=== PATIENT | female | born 1940 | race African-American/Black ===

== ENCOUNTER 2016-12-31 13:56 | Observation (INO) | payer OTHER ==
[~2016-12-31] VITALS: Ht 162.6 cm; Wt 50.0 kg
[~2016-12-31 13:56] MED LIST: AMLO5TAB2 PO; CARV12.52 PO; GABA100C4 PO; LISI-515 PO; MECL-62 PO; METF500T PO; MOBI7.5T PO; MONT10TA4 PO; PANT40TA3 PO; TRAM50TA PO
[2016-12-31 13:57] VITALS: BP 171/75; PULSE 78; RESP 12; TEMP 98.5; O2SAT 99
--- NOTE | 2016-12-31 14:08 | PD ---
Physical Exam Time Seen by Provider: 14:04 Narrative 76yo c/o AGUILAR, chest pain, upper and lower back pain since this morning. Concerned she has pneumonia. Reports SOB. Patient seen in triage. Awaiting bed placement. VS reviewed. Data Data Last Documented VS Vital Signs Date Time Temp Pulse Resp B/P Pulse Ox O2 Delivery O2 Flow Rate FiO2 12/31/16 13:57 98.5 78 12 171/75 99 MDM Supervised Visit with [place]: Elaine Cevallos December 31, 2016 14:08
--- NOTE | 2016-12-31 14:46 | RADRPT ---
EXAM DATE/TIME: 12/31/2016 14:26 [facility] COMPARISON: CHEST PA & LAT, August 19, 2014, 16:05. INDICATIONS : Body aches and weakness for 5 days. MEDICAL HISTORY : Hypertension. Diabetes mellitus type 2. SURGICAL HISTORY : Appendectomy. Hysterectomy. ENCOUNTER: Initial ACUITY: 4 - 6 days PAIN SCORE: 5/10 LOCATION: chest FINDINGS: PA and lateral views of the chest demonstrate the lungs to be symmetrically aerated without evidence of mass, infiltrate or effusion. The cardiomediastinal contours are unremarkable. Osseous structure s are intact. CONCLUSION: Normal examination. Wilfrido Jiang MD on December 31, 2016 at 14:44 Board Certified Radiologist. This report was verified electronically.
[2016-12-31 15:00] LABS: AUTOMATED NEUTROPHIL # 3.6 TH/MM3 (1.8-7.7); BASOPHIL % 0.6 % (0.0-2.0); EOSINOPHIL # 0.1 TH/MM3 (0-0.4); EOSINOPHIL % 1.7 % (0.0-4.0); HEMATOCRIT 36.1 % (35.0-46.0); HEMO FLAGS DIFF FINAL; LYMPH % 37.5 % (9.0-44.0); LYMPHOCYTE # 2.6 TH/MM3 (1.0-4.8); MEAN CELL VOLUME 75.6 FL (80.0-100.0); MEAN CORPUSCULAR HEMOGLOBIN 23.9 PG (27.0-34.0); MEAN CORPUSCULAR HGB CONC 31.6 % (32.0-36.0); NEUT % 52.2 % (16.0-70.0); PLATELET COUNT 168 TH/MM3 (150-450); RED BLOOD COUNT 4.78 MIL/MM3 (4.00-5.30); RED CELL DISTRIBUTION WIDTH 14.2 % (11.6-17.2); WHITE BLOOD COUNT 6.9 TH/MM3 (4.0-11.0)
[2016-12-31 15:23] LABS: ANION GAP 8 MEQ/L (5-15); BICARBONATE 26.4 MEQ/L (21.0-32.0); BLOOD UREA NITROGEN 16 MG/DL (7-18); CHLORIDE 108 MEQ/L (98-107); GLOMERULAR FILTRATION RATE 84 ML/MIN (>89); POTASSIUM 3.9 MEQ/L (3.5-5.1); SODIUM (NA) 142 MEQ/L (136-145)
[2016-12-31 15:26] LABS: CREATINE KINASE 135 U/L (26-192)
[2016-12-31 15:38] LABS: CKMB 0.9 NG/ML (0.5-3.6)
[2016-12-31] MEDS ORDERED: ATOR20TA15 PO (16:10)
[2016-12-31 16:14] VITALS: BP 163/71; PULSE 81; RESP 16; TEMP 98.1; O2SAT 100
--- NOTE | 2016-12-31 16:22 | PD ---
HPI Chief Complaint: Cardiac Complaint Time Seen by Provider: 15:58 Travel History International Travel<30 days: No Contact w/Intl Traveler<30days: No Traveled to known affect area: No History of Present Illness HPI The patient was seen and examined in the presence of the nurse. This patient complains of having some chest pain in her left low chest. Feels like a pressure and heaviness. Started yesterday. Currently resolved. It has been somewhat intermittent. Not exertional. Severity is moderate. No alleviating factors. Duration 24 hours. She also complains of frontal headache. No thunderclap onset. No Head injury or fever. PFSH Past Medical History Hx Anticoagulant Therapy: No Arthritis: Yes Autoimmune Disease: No Blood Disorders: No Heart Rhythm Problems: No Cancer: No Cardiac Catheterization: No Cardiovascular Problems: Yes High Cholesterol: Yes Chemotherapy: No Chest Pain: Yes Congestive Heart Failure: No Cerebrovascular Accident: No Diabetes: Yes Patient Takes Glucophage: Yes Diminished Hearing: No Gastrointestinal Disorders: No Glaucoma: Yes Genitourinary: No Hypertension: Yes Musculoskeletal: Yes (L4-5 STENOSIS) Neurologic: No Psychiatric: No Respiratory: Yes Tetanus Vaccination: > 5 Years Influenza Vaccination: Yes Menopausal: Yes Ovarian Cysts: Yes Past Surgical History Abdominal Surgery: No Appendectomy: Yes Cardiac Surgery: No Coronary Artery Bypass Graft: No Ear Surgery: No Endocrine Surgery: No Eye Surgery: No Genitourinary Surgery: No Gynecologic Surgery: Yes Hysterectomy: Yes Oral Surgery: No Pacemaker: No Thoracic Surgery: No Family History Family Myocardial Infarction: Yes Social History Alcohol Use: No Tobacco Use: No Substance Use: No Allergies-Medications (Allergen,Severity, Reaction): Coded Allergies: Niacin (Verified Allergy, Intermediate, rash, 12/31/16) Acetaminophen (Verified Allergy, Unknown, rash, 12/31/16) Carisoprodol (Verified Allergy, Unknown, rash, 12/31/16) Celestone (Verified Allergy, Unknown, MUSCLE SPASMS, 12/31/16) Iodine (Verified Allergy, Unknown, HIVES, 12/31/16) Lipitor (Verified Allergy, Unknown, MUSCLE SPASMS, 12/31/16) Lortab (Verified Allergy, Unknown, rash, 12/31/16) Lovastatin (Verified Allergy, Unknown, rash, 12/31/16) Soma (Verified Allergy, Unknown, PSYCH BEHAVIORAL, 12/31/16) Hydrocodone (Verified Adverse Reaction, Severe, BEHAVIORAL PSYCH, 12/31/16) Gabapentin (Verified Adverse Reaction, Unknown, DIZZINESS, 12/31/16) Relafen (Verified Adverse Reaction, Unknown, PSYCH BEHAVIORAL, 12/31/16) Uncoded Allergies: STATINS (Allergy, Mild, 08/10/06) NIASPAN (Adverse Reaction, Intermediate, 11/28/09) Reported Meds & Prescriptions Reported Meds & Active Scripts Active Reported Atorvastatin (Atorvastatin Calcium) 20 Mg Tab 20 Mg PO HS Montelukast (Montelukast Sodium) 10 Mg Tab 10 Mg PO HS Tramadol (Tramadol HCl) 50 Mg Tab 50 Mg PO Q12HR PRN Pantoprazole (Pantoprazole Sodium) 40 Mg Tab 40 Mg PO DAILY Metformin (Metformin HCl) 500 Mg Tab 500 Mg PO DAILY With a meal Mobic (Meloxicam) 7.5 Mg Tab 7.5 Mg PO DAILY Meclizine (Meclizine HCl) 25 Mg Tab 25 Mg PO DIRECTED PRN Lisinopril 20 Mg Tab 20 Mg PO DAILY Carvedilol 12.5 Mg Tab 12.5 Mg PO BID Amlodipine (Amlodipine Besylate) 5 Mg Tab 5 Mg PO DAILY Review of Systems General / Constitutional: No: Fever Eyes: No: Visual changes HENT: Positive: Headaches Cardiovascular: Positive: Chest Pain or Discomfort Respiratory: No: Shortness of Breath Gastrointestinal: No: Abdominal Pain Genitourinary: No: Dysuria Musculoskeletal: No: Pain Skin: No Rash Neurologic: Positive: Headache, No: Weakness Psychiatric: No: Depression Endocrine: No: Polydipsia Hematologic/Lymphatic: No: Easy Bruising Physical Exam Narrative GENERAL: Thin elderly well-developed patient in no apparent distress. SKIN: Focused skin assessment reveals no rash and nodules. Skin is Warm and dry. HEAD: Atraumatic. Normocephalic. EYES: Pupils equal and round. No scleral icterus. No injection or drainage. ENT: No nasal bleeding or discharge. Mucous membranes pink and moist. NECK: Trachea midline. No JVD. CARDIOVASCULAR: Regular rate and rhythm. No murmur appreciated. RESPIRATORY: No accessory muscle use. Clear to auscultation. Breath sounds equal bilaterally. GASTROINTESTINAL: Abdomen soft, non-tender, nondistended. Hepatic and splenic margins not palpable. MUSCULOSKELETAL: No obvious deformities. No clubbing. No cyanosis. No edema. No chest wall tenderness NEUROLOGICAL: Awake and alert. No obvious cranial nerve deficits. Motor grossly within normal limits. Normal speech. PSYCHIATRIC: Appropriate mood and affect; insight and judgment normal. Data Data Last Documented VS Vital Signs Date Time Temp Pulse Resp B/P Pulse Ox O2 Delivery O2 Flow Rate FiO2 12/31/16 16:14 98.1 81 16 163/71 100 Room Air Orders Electrocardiogram (12/31/16 14:06) Complete Blood Count With Diff (12/31/16 14:06) Basic Metabolic Panel (Bmp) (12/31/16 14:06) Ckmb (Isoenzyme) Profile (12/31/16 14:06) Troponin I (12/31/16 14:06) Chest, Pa & Lat (12/31/16 14:06) CKMB (12/31/16 14:09) CKMB% (12/31/16 14:09) Iv Access Insert/Monitor (12/31/16 16:06) Ct Brain W/O Iv Contrast(Rout) (12/31/16 ) Labs Laboratory Tests Test 12/31/16 14:09 White Blood Count 6.9 TH/MM3 Red Blood Count 4.78 MIL/MM3 Hemoglobin 11.4 GM/DL Hematocrit 36.1 % Mean Corpuscular Volume 75.6 FL Mean Corpuscular Hemoglobin 23.9 PG Mean Corpuscular Hemoglobin 31.6 % Concent Red Cell Distribution Width 14.2 % Platelet Count 168 TH/MM3 Mean Platelet Volume 9.0 FL Neutrophils (%) (Auto) 52.2 % Lymphocytes (%) (Auto) 37.5 % Monocytes (%) (Auto) 8.0 % Eosinophils (%) (Auto) 1.7 % Basophils (%) (Auto) 0.6 % Neutrophils # (Auto) 3.6 TH/MM3 Lymphocytes # (Auto) 2.6 TH/MM3 Monocytes # (Auto) 0.6 TH/MM3 Eosinophils # (Auto) 0.1 TH/MM3 Basophils # (Auto) 0.0 TH/MM3 CBC Comment DIFF FINAL Differential Comment Sodium Level 142 MEQ/L Potassium Level 3.9 MEQ/L Chloride Level 108 MEQ/L Carbon Dioxide Level 26.4 MEQ/L Anion Gap 8 MEQ/L Blood Urea Nitrogen 16 MG/DL Creatinine 0.80 MG/DL Estimat Glomerular Filtration 84 ML/MIN Rate Random Glucose 132 MG/DL Calcium Level 9.4 MG/DL Total Creatine Kinase 135 U/L Creatine Kinase MB 0.9 NG/ML Troponin I LESS THAN 0.02 NG/ML MDM Medical Decision Making Medical Screen Exam Complete: Yes Emergency Medical Condition: Yes Medical Record Reviewed: Yes Differential Diagnosis Differential diagnosis includes VA, angina, pericarditis, pleurisy, GERD, anxiety. Narrative Course I have reviewed the patient's electronic medical record. Patient had a negative exercise treadmill test approximately one year ago IV placed I reviewed the EKG which shows sinus rhythm and no acute ST elevation I reviewed the chest x-ray is negative Extended cardiac monitoring shows sinus rhythm without ectopy CBC is normal Metabolic profile is normal CK is normal Troponin is normal Coagulation studies are normal Brain CT is normal Patient's headache has resolved. I don't feel it requires further workup at this time. Given her age and chest symptoms I'm going to make her 23 hour observation in the chest pain center in order to rule out cardiac cause of her symptoms. She is agreeable. Initial cardiac workup is negative. Symptoms are atypical. Diagnosis Primary Impression: Chest pain Qualified Code: R07.2 - Precordial pain Admitting Information Admitting Physician Requests: Observation Jong Pak MD December 31, 2016 16:22
--- NOTE | 2016-12-31 16:57 | RADRPT ---
EXAM DATE/TIME: 12/31/2016 16:37 [facility] COMPARISON: No previous studies available for comparison. INDICATIONS : Cephalgia RADIATION DOSE: 38.93 CTDIvol (mGy) MEDICAL HISTORY : Hypertension. Cardiovascular disease Diabetes SURGICAL HISTORY : None. ENCOUNTER: Initial ACUITY: 1 day PAIN SCALE: 3/10 LOCATION: Cranial TECHNIQUE: Multiple contiguous axial images were obtained of the head. Using automated exposure control and adjustment of the mA and/or kV according to patient size, radiation dose was kept as low as reasonably achievable to obtain optimal diagnostic quality images. FINDINGS: Noncontrast head CT demonstrates the patient has a very narrowed foramen magnum. There may be some calcification associated with the transverse ligament. The C1-2 articulation is not wel l seen. It is chronic and unchanged from June 2015. The rest of the intracranial exam is normal. There is no evidence of any hemorrhage or edema. There is no mass or mass effect. No subarachnoid or subdural hematoma is identified. Sinuses are clear. CONCLUSION: Very narrowed foramen magnum. Intracranial exam is normal. Wilfrido Jiang MD on December 31, 2016 at 16:52 Board Certified Radiologist. This report was verified electronically.
[2016-12-31] MEDS ORDERED: SODIUM CHLORIDE 0.9% FLUSH 10 ML FLUSH IV FLUSH PRN (18:15)
[2016-12-31] MEDS ORDERED: ONDANSETRON HCL 4 MG/2 ML VIAL IV PRN (18:15)
[2016-12-31 18:27] VITALS: BP 162/71; PULSE 67; RESP 16; TEMP 97.8; O2SAT 98
[2016-12-31 19:33] LABS: CREATINE KINASE 122 U/L (26-192)
[2016-12-31 19:46] LABS: CKMB 0.9 NG/ML (0.5-3.6)
[2016-12-31 20:30] VITALS: BP 158/70; PULSE 70; RESP 14; O2SAT 99
[2016-12-31 21:29] VITALS: BP 154/70; PULSE 63; RESP 19; TEMP 98.1; O2SAT 99
[2016-12-31] MEDS: SODIUM CHLORIDE 0.9% FLUSH 10 ML FLUSH IV FLUSH SCH (21:33)
[2016-12-31] MEDS: CARVEDILOL 12.5 MG TAB PO SCH (21:34)
[2016-12-31 21:55] LABS: CREATINE KINASE 139 U/L (26-192)
[2016-12-31 22:07] LABS: CKMB 0.7 NG/ML (0.5-3.6)
[2016-12-31 23:44] VITALS: BP 155/72; PULSE 60; RESP 18; TEMP 98
[2017-01-01 00:51] VITALS: PULSE 61
[2017-01-01 03:29] VITALS: BP 128/60; PULSE 63; RESP 18; TEMP 98.1; O2SAT 98
[2017-01-01 07:02] VITALS: BP 126/94; PULSE 66; RESP 20; TEMP 97.7; O2SAT 99
[2017-01-01] MEDS ORDERED: ACETAMINOPHEN 500 MG CPLT PO PRN (07:30)
[2017-01-01] MEDS ORDERED: NITROGLYCERIN 0.4 MG SL 25 TABS/BTL SL PRN (07:30)
[2017-01-01] MEDS: CARVEDILOL 12.5 MG TAB PO SCH (08:18)
--- NOTE | 2017-01-01 08:24 | HHI.HP ---
[facility] Primary Care Physician Demetra Camacho MD Chief Complaint Chest pain History of Present Illness 76-year-old female with pertinent medical history of diabetes, hypertension, hyperlipidemia, and cardiomegaly presents to the emergency room for further evaluation of chest pain and headache. Onset yesterday morning upon awakening. Location substernal chest. Characterized as "a lot of gas and I felt full." Chest discomfort described as pressure. No radiation of pain. Associated symptoms included diaphoresis however she believes this may have been because she was "panicked" over chest discomfort and headache. Denied nausea, vomiting , or shortness of breath. Chest pressure was not made better or worse with taking deep breath, movement, or exertion. In fact she walked her neighborhood to try to get relief. Duration lasted all morning, at that time she called her daughter to bring her to the emergency room. Endorses she took a laxative to determine if laxative would help with her "full feeling." Laxative did not relieve her symptoms. No known precipitating or relieving factors. Headache location frontal region. No blurred vision, dizziness, or nausea. Headache has since subsided. Review of Systems General: No fatigue,weakness, fever, chills, recent travel, recent illness, or change in appetite. Has been in her general state of health. HEENT: AGUILAR has improved. Denied any vision changes during headache episode or dizziness. No nasal congestion or drainage, no dysphasia. CV: As stated above. No current chest pain or pressure. No CP or pressure. RESP: No SOB, cough, wheeze, or recent URI. GI: No nausea, vomiting, bowel changes, pain or distention. Denies blood in the stool or melena. Endorses constipation, uses laxative at least twice weekly. Last bowel movement yesterday and she is no longer feeling constipated. No unintentional weight gain or weight loss : No dysuria, urgency, or frequency EXT: No lower leg edema, no paraesthesias MS: No discomfort or change in ROM. Chronic bilateral knee pain stable, walks with cane. NEURO: No change in memory, dizziness, difficulty with balance, LOC, motor/ sensory deficits PSYCH: No anxiety or depression SKIN: No rashes, no concerning lesions Past Family Social History Allergies: Coded Allergies: Niacin (Verified Allergy, Intermediate, rash, 12/31/16) Acetaminophen (Verified Allergy, Unknown, rash, 12/31/16) Carisoprodol (Verified Allergy, Unknown, rash, 12/31/16) Celestone (Verified Allergy, Unknown, MUSCLE SPASMS, 12/31/16) Iodine (Verified Allergy, Unknown, HIVES, 12/31/16) Lipitor (Verified Allergy, Unknown, MUSCLE SPASMS, 12/31/16) Lortab (Verified Allergy, Unknown, rash, 12/31/16) Lovastatin (Verified Allergy, Unknown, rash, 12/31/16) Soma (Verified Allergy, Unknown, PSYCH BEHAVIORAL, 12/31/16) Hydrocodone (Verified Adverse Reaction, Severe, BEHAVIORAL PSYCH, 12/31/16) Gabapentin (Verified Adverse Reaction, Unknown, DIZZINESS, 12/31/16) Relafen (Verified Adverse Reaction, Unknown, PSYCH BEHAVIORAL, 12/31/16) Uncoded Allergies: STATINS (Allergy, Mild, 08/10/06) NIASPAN (Adverse Reaction, Intermediate, 11/28/09) Past Medical History Diabetes, hyperlipidemia, hypertension, glaucoma, cardiomegaly, L4-L5 stenosis, lupus, osteoarthritis Past Surgical History Appendectomy, hysterectomy, 2 back surgeries Reported Medications Active Reported Atorvastatin (Atorvastatin Calcium) 20 Mg Tab 20 Mg PO HS Montelukast (Montelukast Sodium) 10 Mg Tab 10 Mg PO HS Tramadol (Tramadol HCl) 50 Mg Tab 50 Mg PO Q12HR PRN Pantoprazole (Pantoprazole Sodium) 40 Mg Tab 40 Mg PO DAILY Metformin (Metformin HCl) 500 Mg Tab 500 Mg PO DAILY With a meal Mobic (Meloxicam) 7.5 Mg Tab 7.5 Mg PO DAILY Meclizine (Meclizine HCl) 25 Mg Tab 25 Mg PO DIRECTED PRN Lisinopril 20 Mg Tab 20 Mg PO DAILY Carvedilol 12.5 Mg Tab 12.5 Mg PO BID Amlodipine (Amlodipine Besylate) 5 Mg Tab 5 Mg PO DAILY Aspirin 81 mg PO QD Glipizide 10mg QD Diltiazem 240mg QD Hydroxychloroquine sulfate 200mg one tablet daily Active Ordered Medications Current Medications 0 Medications (Trade) Dose Ordered Sig/Katty Route Start Time Stop Time Status Last Admin (Zofran Inj) 4 mg Q6H PRN IV 12/31/16 18:15 (Aspirin) 325 mg DAILY PO 01/01/17 09:00 (Coreg) 12.5 mg Q12HR PO 12/31/16 21:00 12/31/16 21:34 (Prinivil) 20 mg DAILY PO 01/01/17 09:00 (Protonix) 40 mg DAILY PO 01/01/17 09:00 (Tylenol) 500 mg Q4H PRN PO 01/01/17 07:30 UNV (Nitrostat Sl) 0.4 mg Q5M PRN SL 01/01/17 07:30 Family History Noncontributory for early onset cardiovascular disease Social History Known diabetes, hypertension, and hyperlipidemia. Lifelong nonsmoker. Denies any alcohol or illegal drug use. Ambulates with a cane. Lives independently, she is a . Past cardiac testing No recent cardiac testing. Patient follows with Dr. Suárez, most recent appointment earlier this year. Never had cardiac catheterization. Per [facility] records most recent stress testing as follows: 10/19/15 ETT walked 3:31 minutes, normal exam, with no evidence of ischemia 07/04/13 nuclear ETT negative for ischemia Physical Exam Vital Signs Vital Signs Date Time Temp Pulse Resp B/P Pulse Ox O2 Delivery O2 Flow Rate FiO2 01/01/17 07:02 97.7 66 20 126/94 99 01/01/17 03:29 98.1 63 18 128/60 98 01/01/17 00:51 61 12/31/16 23:44 98.0 60 18 155/72 12/31/16 22:06 21 12/31/16 21:29 98.1 63 19 154/70 99 12/31/16 20:30 70 14 158/70 99 Room Air 12/31/16 18:27 97.8 67 16 162/71 98 Room Air 12/31/16 16:14 98.1 81 16 163/71 100 Room Air 12/31/16 16:02 68 17 98 Room Air 12/31/16 13:57 98.5 78 12 171/75 99 Physical Exam GENERAL: Alert WN, WD, NAD, pleasant, elderly female HEAD: NC, AT EYES: Sclera clear, conjunctiva without injection, pupils equal and round ENT: Mucous membranes pink and moist NECK: Supple, no masses, trachea midline CV: RRR, without murmur, rub, gallop, no JVD, S1-S2 no S3-S4. No carotid bruits. RESP: Clear lungs throughout bilateral, no crackles, wheeze, rhonchi, symmetrical chest rise, nonlabored, able to speak in full sentences ABD: Soft, NT, ND, no masses, positive bowel tones BACK: No CVAT EXT: Pulses +24, no dependent edema MS: Normal tone 4 extremities, nontender, no obvious deformities, full range of motion NEURO: CN II through CN XII grossly intact, motor strength 5/5, gait WNL PSYCH: A+O 3, pleasant affect, appropriate speech, appropriate mood and affect , insight and judgment SKIN: Normal turgor, normal texture, no lesions, no rashes Laboratory Laboratory Tests Test 12/31/16 12/31/16 12/31/16 14:09 18:00 21:05 White Blood Count 6.9 Red Blood Count 4.78 Hemoglobin 11.4 Hematocrit 36.1 Mean Corpuscular Volume 75.6 Mean Corpuscular Hemoglobin 23.9 Mean Corpuscular Hemoglobin 31.6 Concent Red Cell Distribution Width 14.2 Platelet Count 168 Mean Platelet Volume 9.0 Neutrophils (%) (Auto) 52.2 Lymphocytes (%) (Auto) 37.5 Monocytes (%) (Auto) 8.0 Eosinophils (%) (Auto) 1.7 Basophils (%) (Auto) 0.6 Neutrophils # (Auto) 3.6 Lymphocytes # (Auto) 2.6 Monocytes # (Auto) 0.6 Eosinophils # (Auto) 0.1 Basophils # (Auto) 0.0 CBC Comment DIFF FINAL Differential Comment Sodium Level 142 Potassium Level 3.9 Chloride Level 108 Carbon Dioxide Level 26.4 Anion Gap 8 Blood Urea Nitrogen 16 Creatinine 0.80 Estimat Glomerular Filtration 84 Rate Random Glucose 132 Calcium Level 9.4 Total Creatine Kinase 135 122 139 Creatine Kinase MB 0.9 0.9 0.7 Troponin I LESS THAN 0.02 LESS THAN 0.02 LESS THAN 0.02 Result Diagram: 12/31/16 1409 12/31/16 1409 Imaging Last Impressions Chest X-Ray 12/31/16 1406 Signed Impressions: Service Date/Time: December 14:26 - CONCLUSION: Normal examination. Wilfrido Jiang MD Head CT 12/31/16 0000 Signed Impressions: Service Date/Time: December 16:37 - CONCLUSION: Very narrowed foramen magnum. Intracranial exam is normal. Wilfrido Jiang MD Course EKGs Normal sinus rhythm, normal axis, no ST or T-segment changes Assessment and Plan Assessment and Plan #1 Chest painminutes chest pain center. Ruled out with 3 sets of cardiac enzymes, EKGs, monitor overnight. Seen and evaluated by Dr. Monse Ibarra. Spoke with patient's cloud solutions architect, Dr. Suárez, to notify of patients arrival to chest pain center. Dr. Suárez agrees for chest pain center physician to make decisions regarding next step in plan of care. Chemical stress test this a.m., Naturally, if stress test unremarkable discharge later this afternoon. Patient agreeable to plan of care. #2 Hypertensioncontinue lisinopril, amlodipine, carvedilol. Encouraged patient to take BP log as she was hypertensive initially in the ER. Take BP log to next PCP appointment. #3 Diabetescontinue metformin and glipizide #4 Hyperlipidemiacontinue atorvastatin #5 GERD-continue Protonix #6 Constipation-educated on meat packer affects of regular laxative usage and risk of physical dependence. Encouraged diet with plenty of fruits, vegetables , whole grains, and water intake paired with daily activity. Clarita Vo January 01, 2017 08:24
[2017-01-01] MEDS: SODIUM CHLORIDE 0.9% FLUSH 10 ML FLUSH IV FLUSH SCH (08:46)
[2017-01-01 09:00] VITALS: PULSE 63
[2017-01-01] MEDS ORDERED: ASPIRIN 325 MG TAB PO SCH (09:00)
[2017-01-01] MEDS ORDERED: LISINOPRIL 20 MG TAB PO SCH ×2 (09:00→13:00)
[2017-01-01] MEDS ORDERED: PANTOPRAZOLE SOD 40 MG DELAYED RELEASE TAB PO SCH ×2 (09:00→13:00)
[2017-01-01] MEDS ORDERED: REGADENOSON INJ 0.4 MG/5 ML SYR ONE (10:33)
[2017-01-01 12:06] VITALS: BP 155/69; PULSE 68; RESP 20; TEMP 98.5; O2SAT 95
--- NOTE | 2017-01-01 12:08 | RADRPT ---
EXAM DATE/TIME: 01/01/2017 09:54 [facility] COMPARISON: MYOCARDIAL PERF PHARM SPECT, GATED W/EF, July 04, 2013, 9:10. INDICATIONS : Substernal chest pain. Angina. DOSE: 25.4 mCi Tc99m Myoview at stress. 8.5 mCi Tc99m Myoview at rest. 0.4 mg Lexiscan STRESS SYMPTOMS: Dyspnea. EJECTION FRACTION: 64% MEDICAL HISTORY : Hypertension. Diabetes mellitus type 2. SURGICAL HISTORY : Appendectomy. Hysterectomy. ENCOUNTER: Initial ACUITY: 1 day PAIN SCALE: 6/10 LOCATION: Substernal chest TECHNIQUE: The patient underwent pharmacologic stress with infusion of prescribed dose. Continuous ECG tracing was monitored during stress. Gated SPECT imaging was performed after stress and conventional SPECT i maging was performed at rest. The examination was performed on a SPECT/CT scanner, both attenuation and non-corrected datasets were reviewed. FINDINGS: DISTRIBUTION: The maximum perfused segment at stress is in the inferoseptal wall. PERFUSION STUDY: The pattern of perfusion at stress is within normal limits. GATED STUDY: There is intact wall motion and thickening without hypokinetic or dyskinetic segments. CONCLUSION: Unremarkable myocardial perfusion scan. RISK CATEGORY: Low (<1% Annual Mortality Rate) Santos Williamson MD on January 01, 2017 at 12:02 Board Certified Radiologist. This report was verified electronically.
--- NOTE | 2017-01-01 12:29 | HHI.DCPOC ---
Discharge Care Plan Diagnosis: (1) Atypical chest pain (2) Hypertension (3) Hyperlipidemia (4) DM (diabetes mellitus) Goals to Promote Your Health * To prevent worsening of your condition and complications * To maintain your health at the optimal level Directions to Meet Your Goals Take your medications as prescribed Follow your dietary instruction Follow activity as directed Keep your appointments as scheduled Take your immunizations and boosters as scheduled If your symptoms worsen call your PCP, if no PCP go to Urgent Care Center or Emergency Room Smoking is Dangerous to Your Health. Avoid second hand smoke Call the 24-hour hour crisis hotline for domestic abuse at Clarita Vo January 01, 2017 12:29
[2017-01-01] MEDS ORDERED: metFORMIN HCL 500 MG TAB PO SCH (13:00)
[2017-01-01] MEDS ORDERED: CARVEDILOL 12.5 MG TAB PO SCH (13:00)
[2017-01-01] MEDS ORDERED: amLODIPine BESYLATE 5 MG TAB PO SCH (13:00)
--- NOTE | 2017-01-01 19:40 | EKG ---
Date Performed: 12/31/2016 Time Performed: 18:22:35 PTAGE: 76 years EKG: Sinus rhythm NORMAL ECG Since PREVIOUS TRACING , no significant change noted PREVIOUS TRACIN12/31/2016 14.27 DOCTOR: Monse Ibarra Interpretating Date/Time 01/01/2017 19:39:40
--- NOTE | 2017-01-01 19:40 | EKG ---
Date Performed: 12/31/2016 Time Performed: 21:22:06 PTAGE: 76 years EKG: Sinus rhythm NORMAL ECG Since PREVIOUS TRACING , no significant change noted PREVIOUS TRACIN12/31/2016 18.22 DOCTOR: Monse Ibarra Interpretating Date/Time 01/01/2017 19:38:43
--- NOTE | 2017-01-01 19:41 | EKG ---
Date Performed: 12/31/2016 Time Performed: 14:27:07 PTAGE: 76 years EKG: Sinus rhythm NORMAL ECG Since PREVIOUS TRACING , no significant change noted PREVIOUS TRACIN10/19/2015 01.51 DOCTOR: Monse Ibarra Interpretating Date/Time 01/01/2017 19:40:51
--- NOTE | 2017-01-01 20:13 | TR ---
Date Performed: 01/01/2017 Time Performed: 10:29:14 DOCTOR: Monse Ibarra DRUG LIST: CLINICAL HISTORY: CHEST PAIN REASON FOR TEST: CHEST PAIN REASON FOR ENDING: OBSERVATION: CONCLUSION: Lexiscan stress test was performed under standard four minute protocol. Radionuclid e was injected one minute prior to ending the test. No electrocardiographic abormalities were present to suggest ischemia. Nuclear imaging and interpretation are pending. COMMENTS:
== END 2017-01-01 15:48 | disposition home or self-care (01) ==
LOC: NEPC 13:56 → NEDA 18:04 → NEPGCP 21:04
PROVIDERS: ADMIT Internal Medicine Cardiovascular Disease; ATTEND Internal Medicine Cardiovascular Disease
DX: R07.9 Chest pain, unspecified (principal); M54.5 Low back pain; R06.02 Shortness of breath; R51 Headache; E78.00 Pure hypercholesterolemia, unspecified; E11.9 Type 2 diabetes mellitus without complications; I11.9 Hypertensive heart disease without heart failure; Z79.84 Long term (current) use of oral hypoglycemic drugs; K59.00 Constipation, unspecified; K21.9 Gastro-esophageal reflux disease without esophagitis; E78.5 Hyperlipidemia, unspecified
CPT/HCPCS: 70450; 71020; 78452; 80048; 82550; 82552; 84484; 85025; 93005; 93017; 99285; A9502; G0378; J2785

== ENCOUNTER 2017-04-29 12:10 | Emergency (ER) | payer OTHER ==
[~2017-04-29] VITALS: Ht 162.6 cm; Wt 60.0 kg
[~2017-04-29 12:10] MED LIST changes: +ATOR20TA15 PO; -GABA100C4 PO
[2017-04-29 12:11] VITALS: BP 179/79; PULSE 82; RESP 20; TEMP 98.5; O2SAT 96
--- NOTE | 2017-04-29 12:35 | PD ---
HPI Chief Complaint: Dizziness Time Seen by Provider: 12:30 Travel History International Travel<30 days: No Contact w/Intl Traveler<30days: No Traveled to known affect area: No History of Present Illness HPI Patient is a 76-year-old female presenting to the emergency department evaluation of dizziness. Patient states she was sitting on the side of her bed this morning, she got up to walk to the bathroom when she suddenly felt as if the room was spinning. She slid herself down to the floor. She reports a history of dizziness but states this is different than it was in the past. She also reports a headache that has been on and off for several days, she reports feeling as if she could've had a stroke last week because she had weakness in her arms and legs. Patient states the headache is dull, intermittent in nature , she reports the pain as a 4 out of 10. Patient denies any chest pain, shortness of breath, abdominal pain, nausea, vomiting, dysuria. 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) Neurologic: No Psychiatric: No Respiratory: Yes ?: Not Menopausal: Yes Ovarian Cysts: Yes Past Surgical History Abdominal Surgery: No Appendectomy: Yes Cardiac Surgery: No Coronary Artery Bypass Graft: No Ear Surgery: No Endocrine Surgery: No Eye Surgery: No Genitourinary Surgery: No Gynecologic Surgery: Yes Hysterectomy: Yes Oral Surgery: No Pacemaker: No Thoracic Surgery: No Social History Alcohol Use: No Tobacco Use: No Substance Use: No Allergies-Medications (Allergen,Severity, Reaction): Coded Allergies: niacin (Unverified Allergy, Intermediate, rash, 03/30/17) acetaminophen (Unverified Allergy, Unknown, rash, 03/30/17) atorvastatin (Unverified Allergy, Unknown, MUSCLE SPASMS, 03/30/17) betamethasone (Unverified Allergy, Unknown, MUSCLE SPASMS, 03/30/17) carisoprodol (Unverified Allergy, Unknown, rash, 03/30/17) iodine (Unverified Allergy, Unknown, HIVES, 03/30/17) lovastatin (Unverified Allergy, Unknown, rash, 03/30/17) potassium iodide (Unverified Allergy, Unknown, HIVES, 03/30/17) povidone-iodine (Unverified Allergy, Unknown, HIVES, 03/30/17) sodium iodide (Unverified Allergy, Unknown, HIVES, 03/30/17) sodium iodide (Unverified Allergy, Unknown, HIVES, 03/30/17) hydrocodone (Unverified Adverse Reaction, Severe, BEHAVIORAL PSYCH, ) gabapentin (Unverified Adverse Reaction, Unknown, DIZZINESS, 03/30/17) nabumetone (Unverified Adverse Reaction, Unknown, PSYCH BEHAVIORAL, ) Uncoded Allergies: STATINS (Allergy, Mild, 08/10/06) NIASPAN (Adverse Reaction, Intermediate, 11/28/09) Reported Meds & Prescriptions Reported Meds & Active Scripts Active Reported Atorvastatin (Atorvastatin Calcium) 20 Mg Tab 20 Mg PO HS Montelukast (Montelukast Sodium) 10 Mg Tab 10 Mg PO HS Pantoprazole (Pantoprazole Sodium) 40 Mg Tab 40 Mg PO DAILY Metformin (Metformin HCl) 500 Mg Tab 500 Mg PO DAILY With a meal Meclizine (Meclizine HCl) 25 Mg Tab 25 Mg PO DIRECTED PRN Lisinopril 20 Mg Tab 20 Mg PO DAILY Carvedilol 12.5 Mg Tab 12.5 Mg PO BID Amlodipine (Amlodipine Besylate) 5 Mg Tab 5 Mg PO DAILY Review of Systems Except as stated in HPI: all other systems reviewed are Neg HENT: Positive: Headaches, Vertigo, Lightheadedness Cardiovascular: No: Chest Pain or Discomfort Respiratory: No: Shortness of Breath Gastrointestinal: No: Nausea, Abdominal Pain Musculoskeletal: Positive: Arthralgias (chronic) Neurologic: Positive: Dizziness, Headache Physical Exam Narrative GENERAL: Well-developed, well-nourished, alert female. Resting comfortably in no acute distress. SKIN: Warm and dry. HEAD: Atraumatic. Normocephalic. EYES: Pupils equal and round. No scleral icterus. No injection or drainage. ENT: No nasal bleeding or discharge. Mucous membranes pink and moist. NECK: Trachea midline. No JVD. CARDIOVASCULAR: Regular rate and rhythm. RESPIRATORY: No accessory muscle use. Clear to auscultation. Breath sounds equal bilaterally. GASTROINTESTINAL: Abdomen soft, non-tender, nondistended. Hepatic and splenic margins not palpable. MUSCULOSKELETAL: Extremities without clubbing, cyanosis, or edema. No obvious deformities. NEUROLOGICAL: Awake and alert. No obvious cranial nerve deficits. Motor grossly within normal limits. Five out of 5 muscle strength in the arms and legs. Normal speech. PSYCHIATRIC: Appropriate mood and affect; insight and judgment normal. Data Data Last Documented VS Vital Signs Date Time Temp Pulse Resp B/P (MAP) Pulse Ox O2 Delivery O2 Flow Rate FiO2 04/29/17 14:01 60 20 136/60 (85) 72 20 123/65 (84) 04/29/17 12:11 98.5 96 Room Air Orders Orders Electrocardiogram (04/29/17 12:31) Complete Blood Count With Diff (04/29/17 12:31) Comprehensive Metabolic Panel (04/29/17 12:31) Ckmb (Isoenzyme) Profile (04/29/17 12:31) Troponin I (04/29/17 12:31) Urinalysis - C+S If Indicated (04/29/17 12:31) Ecg Monitoring (04/29/17 12:31) Iv Access Insert/Monitor (04/29/17 12:31) Oximetry (04/29/17 12:31) Meclizine (Antivert) (04/29/17 12:45) Sodium Chloride 0.9% Flush (Ns Flush) (04/29/17 12:45) Ct Brain W/O Iv Contrast(Rout) (04/29/17 ) Orthostatic Vital Signs (04/29/17 13:18) CKMB (04/29/17 12:55) CKMB% (04/29/17 12:55) Labs Laboratory Tests Test 04/29/17 12:55 04/29/17 14:00 White Blood Count 6.5 TH/MM3 Red Blood Count 4.67 MIL/MM3 Hemoglobin 11.7 GM/DL Hematocrit 35.9 % Mean Corpuscular Volume 76.9 FL Mean Corpuscular Hemoglobin 25.1 PG Mean Corpuscular Hemoglobin Concent 32.7 % Red Cell Distribution Width 14.2 % Platelet Count 198 TH/MM3 Mean Platelet Volume 9.0 FL Neutrophils (%) (Auto) 55.1 % Lymphocytes (%) (Auto) 36.6 % Monocytes (%) (Auto) 6.3 % Eosinophils (%) (Auto) 1.2 % Basophils (%) (Auto) 0.8 % Neutrophils # (Auto) 3.6 TH/MM3 Lymphocytes # (Auto) 2.4 TH/MM3 Monocytes # (Auto) 0.4 TH/MM3 Eosinophils # (Auto) 0.1 TH/MM3 Basophils # (Auto) 0.1 TH/MM3 CBC Comment DIFF FINAL Differential Comment Blood Urea Nitrogen 18 MG/DL Creatinine 0.92 MG/DL Random Glucose 164 MG/DL Total Protein 7.3 GM/DL Albumin 3.9 GM/DL Calcium Level 9.1 MG/DL Alkaline Phosphatase 58 U/L Aspartate Amino Transf (AST/SGOT) 20 U/L Alanine Aminotransferase (ALT/SGPT) 26 U/L Total Bilirubin 0.6 MG/DL Sodium Level 138 MEQ/L Potassium Level 4.5 MEQ/L Chloride Level 105 MEQ/L Carbon Dioxide Level 27.0 MEQ/L Anion Gap 6 MEQ/L Estimat Glomerular Filtration Rate 71 ML/MIN Total Creatine Kinase 137 U/L Creatine Kinase MB 1.1 NG/ML Troponin I LESS THAN 0.02 NG/ML Urine Color YELLOW Urine Turbidity CLEAR Urine pH 7.0 Urine Specific [place] 1.016 Urine Protein NEG mg/dL Urine Glucose (UA) NEG mg/dL Urine Ketones NEG mg/dL Urine Occult Blood NEG Urine Nitrite NEG Urine Bilirubin NEG Urine Urobilinogen LESS THAN 2.0 MG/DL Urine Leukocyte Esterase MOD Urine RBC LESS THAN 1 /hpf Urine WBC 1 /hpf Urine Squamous Epithelial Cells <1 /hpf Urine Mucus FEW /lpf Microscopic Urinalysis Comment CULT NOT INDICATED MDM Medical Decision Making Medical Screen Exam Complete: Yes Emergency Medical Condition: Yes Medical Record Reviewed: Yes Interpretation(s) Last Impressions Head CT 04/29/17 0000 Signed Impressions: Service Date/Time: April 12:56 - CONCLUSION: 1. Diffuse cerebral atrophy. 2. No acute infarct, acute hemorrhage, mass effect or extra axial fluid collections. 3. 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 Joe Xavier MD Laboratory Tests Test 04/29/17 12:55 04/29/17 14:00 White Blood Count 6.5 TH/MM3 Red Blood Count 4.67 MIL/MM3 Hemoglobin 11.7 GM/DL Hematocrit 35.9 % Mean Corpuscular Volume 76.9 FL Mean Corpuscular Hemoglobin 25.1 PG Mean Corpuscular Hemoglobin Concent 32.7 % Red Cell Distribution Width 14.2 % Platelet Count 198 TH/MM3 Mean Platelet Volume 9.0 FL Neutrophils (%) (Auto) 55.1 % Lymphocytes (%) (Auto) 36.6 % Monocytes (%) (Auto) 6.3 % Eosinophils (%) (Auto) 1.2 % Basophils (%) (Auto) 0.8 % Neutrophils # (Auto) 3.6 TH/MM3 Lymphocytes # (Auto) 2.4 TH/MM3 Monocytes # (Auto) 0.4 TH/MM3 Eosinophils # (Auto) 0.1 TH/MM3 Basophils # (Auto) 0.1 TH/MM3 CBC Comment DIFF FINAL Differential Comment Blood Urea Nitrogen 18 MG/DL Creatinine 0.92 MG/DL Random Glucose 164 MG/DL Total Protein 7.3 GM/DL Albumin 3.9 GM/DL Calcium Level 9.1 MG/DL Alkaline Phosphatase 58 U/L Aspartate Amino Transf (AST/SGOT) 20 U/L Alanine Aminotransferase (ALT/SGPT) 26 U/L Total Bilirubin 0.6 MG/DL Sodium Level 138 MEQ/L Potassium Level 4.5 MEQ/L Chloride Level 105 MEQ/L Carbon Dioxide Level 27.0 MEQ/L Anion Gap 6 MEQ/L Estimat Glomerular Filtration Rate 71 ML/MIN Total Creatine Kinase 137 U/L Creatine Kinase MB 1.1 NG/ML Troponin I LESS THAN 0.02 NG/ML Urine Color YELLOW Urine Turbidity CLEAR Urine pH 7.0 Urine Specific [place] 1.016 Urine Protein NEG mg/dL Urine Glucose (UA) NEG mg/dL Urine Ketones NEG mg/dL Urine Occult Blood NEG Urine Nitrite NEG Urine Bilirubin NEG Urine Urobilinogen LESS THAN 2.0 MG/DL Urine Leukocyte Esterase MOD Urine RBC LESS THAN 1 /hpf Urine WBC 1 /hpf Urine Squamous Epithelial Cells <1 /hpf Urine Mucus FEW /lpf Microscopic Urinalysis Comment CULT NOT INDICATED Vital Signs Date Time Temp Pulse Resp B/P (MAP) Pulse Ox O2 Delivery O2 Flow Rate FiO2 04/29/17 12:11 98.5 82 20 179/79 (112) 96 Room Air Differential Diagnosis Vertigo versus cardiac arrhythmia versus metabolic abnormalities versus orthostatic hypotension versus other Narrative Course Patient is a 76-year-old female presenting to him for evaluation of dizziness. She also reports a headache. IV access established, labs and imaging ordered and pending. No focal deficits noted on exam. EKG shows sinus rhythm with a rate of 68. CBC is unremarkable Chemistry and urinalysis are unremarkable. Cardiac enzymes are negative [address] scan of brain is negative for acute abnormality Patient was reassessed, she reports having better after the administration of meclizine. Patient was able to demonstrate safe, steady ambulation in the emergency department without dizziness. Patient will be discharged home. She' ll be given a prescription for meclizine. She is encouraged to follow up with her primary doctor to discuss possible vestibular rehabilitation if needed. She is encouraged to return to emergency department immediately for any new or worsening symptoms. Physical examination patient most consistent with BPV, negative workup is reassuring. Diagnosis Primary Impression: Vertigo Referrals: Primary Care Physician 2 days Patient Instructions: General Instructions, Vertigo (ED) Additional Instructions: Follow-up with her primary doctor Change positions slowly Take medications as needed and as directed Return to emergency department for any new or worsening symptoms Med/Other Pt SpecificInfo: Prescription(s) given Scripts Meclizine (Meclizine) 25 Mg Tab 25 MG PO TID Y for VERTIGO, #21 TAB 0 Refills Prov: Martina Farooq 04/29/17 Disposition: 01 DISCHARGE HOME Condition: Stable Martina Farooq Apr 29, 2017 12:35
[2017-04-29] MEDS ORDERED: SODIUM CHLORIDE 0.9% FLUSH 10 ML FLUSH IVF PRN (12:45)
[2017-04-29] MEDS ORDERED: MECLIZINE HCL 25 MG TAB PO ONE (12:45)
[2017-04-29 13:06] LABS: AUTOMATED NEUTROPHIL # 3.6 TH/MM3 (1.8-7.7); BASOPHIL # 0.1 TH/MM3 (0-0.2); BASOPHIL % 0.8 % (0.0-2.0); EOSINOPHIL # 0.1 TH/MM3 (0-0.4); EOSINOPHIL % 1.2 % (0.0-4.0); HEMATOCRIT 35.9 % (35.0-46.0); HEMO FLAGS DIFF FINAL; LYMPH % 36.6 % (9.0-44.0); LYMPHOCYTE # 2.4 TH/MM3 (1.0-4.8); MEAN CELL VOLUME 76.9 FL (80.0-100.0); MEAN CORPUSCULAR HEMOGLOBIN 25.1 PG (27.0-34.0); MEAN CORPUSCULAR HGB CONC 32.7 % (32.0-36.0); MONO % 6.3 % (0.0-8.0); NEUT % 55.1 % (16.0-70.0); PLATELET COUNT 198 TH/MM3 (150-450); RED BLOOD COUNT 4.67 MIL/MM3 (4.00-5.30); RED CELL DISTRIBUTION WIDTH 14.2 % (11.6-17.2); WHITE BLOOD COUNT 6.5 TH/MM3 (4.0-11.0)
--- NOTE | 2017-04-29 13:35 | RADRPT ---
EXAM DATE/TIME: 04/29/2017 12:56 [facility] COMPARISON: CT BRAIN W/O CONTRAST, June 27, 2015, 16:38. CT BRAIN W/O CONTRAST, December 31, 2016, 16:37. INDICATIONS : Cephalgia and dizziness. Fall. RADIATION DOSE: 37.22 CTDIvol (mGy) MEDICAL HISTORY : Hypertension. Diabetes SURGICAL HISTORY : Appendectomy. Hysterectomy. ENCOUNTER: Initial ACUITY: 3 days PAIN SCALE: 4/10 LOCATION: Bilateral cranial TECHNIQUE: Multiple contiguous axial images were obtained of the head. Using automated exposure control and adj ustment of the mA and/or kV according to patient size, radiation dose was kept as low as reasonably a chievable to obtain optimal diagnostic quality images. DICOM format image data is available electro nically for review and comparison. FINDINGS: CEREBRUM: Diffuse cerebral atrophy is noted. No evidence of midline shift, mass lesion, hemorrhage or acute inf arction. No extra-axial fluid collections are seen. POSTERIOR FOSSA: The cerebellum and brainstem are intact. The 4th ventricle is midline. The cerebellopontine angle i s unremarkable. Significant narrowing of the foramen magnum is again noted. EXTRACRANIAL: The visualized portion of the orbits is intact. SKULL: The calvaria is intact. No evidence of skull fracture. CONCLUSION: 1. Diffuse cerebral atrophy. 2. No acute infarct, acute hemorrhage, mass effect or extra axial fluid collections. 3. 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 Joe Xavier MD on April 29, 2017 at 13:31 Board Certified Radiologist. This report was verified electronically.
[2017-04-29 13:38] LABS: ALKALINE PHOSPHATASE 58 U/L (45-117); CREATINE KINASE 137 U/L (26-192); TOTAL BILIRUBIN ADULT 0.6 MG/DL (0.2-1.0)
[2017-04-29 13:45] LABS: ALT (GPT) 26 U/L (10-53); ANION GAP 6 MEQ/L (5-15); AST (GOT) 20 U/L (15-37); BLOOD UREA NITROGEN 18 MG/DL (7-18); CHLORIDE 105 MEQ/L (98-107); GLOMERULAR FILTRATION RATE 71 ML/MIN (>89); POTASSIUM 4.5 MEQ/L (3.5-5.1); SODIUM (NA) 138 MEQ/L (136-145)
[2017-04-29 13:51] LABS: CKMB 1.1 NG/ML (0.5-3.6)
[2017-04-29 14:01] VITALS: BP_SYST 123; BP_SYST 136; BP_DIAS 60; BP_DIAS 65; RESP 20
[2017-04-29 14:24] LABS: BLOOD, URINE NEG (NEG); COMMENT (UR) CULT NOT INDICATED; CULTURE IF INDICATED CULT NOT INDICATED; GLUCOSE,URINE NEG (NEG); KETONE, URINE NEG (NEG); MUCUS URINE FEW /lpf (OCC); NITRITE,URINE NEG (NEG); SQUAMOUS EPITHELIAL CELL URINE <1 /hpf (0-5); URINE COLOR YELLOW (YELLW/STRAW)
[2017-04-29] MEDS ORDERED: MECL-62 PO (14:45)
--- NOTE | 2017-04-30 11:41 | EKG ---
Date Performed: 04/29/2017 Time Performed: 12:43:37 PTAGE: 76 years EKG: Sinus rhythm NORMAL ECG Compared to prior tracing no significant change PREVIOUS TRACING DOCTOR: Francesco Prajapati Interpretating Date/Time 04/30/2017 11:39:04
== END 2017-04-29 16:06 | disposition home or self-care (01) ==
LOC: NEPE 12:10
DX: R42 Dizziness and giddiness (principal); R51 Headache; M19.90 Unspecified osteoarthritis, unspecified site; I42.9 Cardiomyopathy, unspecified; E78.00 Pure hypercholesterolemia, unspecified; E11.9 Type 2 diabetes mellitus without complications; I10 Essential (primary) hypertension; H40.9 Unspecified glaucoma; Z79.899 Other long term (current) drug therapy
CPT/HCPCS: 70450; 80053; 81001; 82550; 82552; 84484; 85025; 93005; 99285

== ENCOUNTER 2017-06-27 16:16 | Emergency (ER) | payer OTHER ==
[~2017-06-27] VITALS: Ht 162.6 cm; Wt 50.0 kg
[~2017-06-27 16:16] MED LIST changes: -MOBI7.5T PO; -TRAM50TA PO
[2017-06-27 16:18] VITALS: BP 139/65; PULSE 81; RESP 16; TEMP 98.3; O2SAT 99
[2017-06-27 17:30] VITALS: BP 156/70; PULSE 69; RESP 18; O2SAT 100
[2017-06-27] MEDS ORDERED: PROCHLORPERAZINE INJ 10 MG/2 ML VIAL IV PUSH ONE (18:00)
[2017-06-27] MEDS ORDERED: traMADol HCL 50 MG TAB PO ONE (18:00)
[2017-06-27] MEDS ORDERED: SODIUM CHLORIDE 0.9% FLUSH 10 ML FLUSH IVF PRN (18:00)
--- NOTE | 2017-06-27 18:09 | PD ---
HPI Chief Complaint: Back/ Neck Pain or Injury Time Seen by Provider: 17:28 Travel History International Travel<30 days: No Contact w/Intl Traveler<30days: No Traveled to known affect area: No History of Present Illness HPI 76-year-old female here with her daughter for several different complaints. The patient reports that she has a headache that started yesterday evening. Pain is described as pressure, currently 10 out of 10, gradual in onset. She is also complaining of neck pain stating that she has had previous surgery on her neck and lower back several years ago. She is also complaining of feeling dizzy/lightheaded and feeling off balance. She denies fevers or chills. No cough. She is also feeling pressure in her bilateral ears. No paresthesias or motor deficits. No urinary symptoms. No urinary or bowel incontinence or retention. No trauma. PFSH Past Medical History Hx Anticoagulant Therapy: No Arthritis: Yes Autoimmune Disease: No Blood Disorders: No Heart Rhythm Problems: No Cancer: No Cardiac Catheterization: No Cardiomyopathy: Yes Cardiovascular Problems: Yes High Cholesterol: Yes Chemotherapy: No Chest Pain: Yes Congestive Heart Failure: No Cerebrovascular Accident: No Diabetes: Yes Patient Takes Glucophage: Yes Diminished Hearing: No Gastrointestinal Disorders: No Glaucoma: Yes Genitourinary: No Heparin Induced Thrombocytopen: No Hypertension: Yes Musculoskeletal: Yes (L4-5 STENOSIS) Neurologic: No Psychiatric: No Respiratory: Yes Menopausal: Yes Ovarian Cysts: Yes Past Surgical History Abdominal Surgery: No Appendectomy: Yes Cardiac Surgery: No Coronary Artery Bypass Graft: No Ear Surgery: No Endocrine Surgery: No Eye Surgery: No Genitourinary Surgery: No Gynecologic Surgery: Yes Hysterectomy: Yes Oral Surgery: No Pacemaker: No Thoracic Surgery: No Other Surgery: No Family History Family Myocardial Infarction: Yes Social History Alcohol Use: No Tobacco Use: No Substance Use: No Allergies-Medications (Allergen,Severity, Reaction): Coded Allergies: niacin (Unverified Allergy, Intermediate, rash, 03/30/17) acetaminophen (Unverified Allergy, Unknown, rash, 03/30/17) atorvastatin (Unverified Allergy, Unknown, MUSCLE SPASMS, 03/30/17) betamethasone (Unverified Allergy, Unknown, MUSCLE SPASMS, 03/30/17) carisoprodol (Unverified Allergy, Unknown, rash, 03/30/17) iodine (Unverified Allergy, Unknown, HIVES, 03/30/17) lovastatin (Unverified Allergy, Unknown, rash, 03/30/17) potassium iodide (Unverified Allergy, Unknown, HIVES, 03/30/17) povidone-iodine (Unverified Allergy, Unknown, HIVES, 03/30/17) sodium iodide (Unverified Allergy, Unknown, HIVES, 03/30/17) sodium iodide (Unverified Allergy, Unknown, HIVES, 03/30/17) hydrocodone (Unverified Adverse Reaction, Severe, BEHAVIORAL PSYCH, ) gabapentin (Unverified Adverse Reaction, Unknown, DIZZINESS, 03/30/17) nabumetone (Unverified Adverse Reaction, Unknown, PSYCH BEHAVIORAL, ) Uncoded Allergies: STATINS (Allergy, Mild, 08/10/06) NIASPAN (Adverse Reaction, Intermediate, 11/28/09) Reported Meds & Prescriptions Reported Meds & Active Scripts Active Reported Atorvastatin (Atorvastatin Calcium) 20 Mg Tab 20 Mg PO HS Pantoprazole (Pantoprazole Sodium) 40 Mg Tab 40 Mg PO DAILY Metformin (Metformin HCl) 500 Mg Tab 500 Mg PO DAILY With a meal Carvedilol 12.5 Mg Tab 12.5 Mg PO BID Amlodipine (Amlodipine Besylate) 5 Mg Tab 5 Mg PO DAILY Review of Systems Except as stated in HPI: all other systems reviewed are Neg Physical Exam Narrative GENERAL: Well-developed, well-nourished, awake, alert, comfortable, no apparent distress. SKIN: Focused skin assessment warm/dry. No rash. HEAD: Atraumatic. Normocephalic. EYES: Pupils equal and round. No scleral icterus. No injection or drainage. ENT: No nasal bleeding or discharge. Mucous membranes pink and moist. Bilateral tympanic members and external auditory canals are normal. NECK: Trachea midline. No JVD. No nuchal rigidity. Mild to moderate midline cervical spine tenderness without step-off. CARDIOVASCULAR: Regular rate and rhythm. Distal pulses brisk and equal bilaterally. RESPIRATORY: No accessory muscle use. Clear to auscultation. Breath sounds equal bilaterally. GASTROINTESTINAL: Abdomen soft, non-tender, nondistended. MUSCULOSKELETAL: No obvious deformities. No clubbing. No cyanosis. No edema. NEUROLOGICAL: Awake and alert. No obvious cranial nerve deficits. Motor grossly within normal limits. Normal speech. PSYCHIATRIC: Appropriate mood and affect; insight and judgment normal. Data Data Last Documented VS Vital Signs Date Time Temp Pulse Resp B/P (MAP) Pulse Ox O2 Delivery O2 Flow Rate FiO2 06/27/17 18:57 82 156/78 (104) 150/76 (100) 06/27/17 18:18 98 Room Air 06/27/17 18:18 18 06/27/17 16:18 98.3 Orders Orders Electrocardiogram (06/27/17 17:51) Basic Metabolic Panel (Bmp) (06/27/17 17:51) Ckmb (Isoenzyme) Profile (06/27/17 17:51) Complete Blood Count With Diff (06/27/17:51) Magnesium (Mg) (06/27/17:51) Prothrombin Time / Inr (Pt) (06/27/17 17:51) Act Partial Throm Time (Ptt) (06/27/17 17:51) Troponin I (06/27/17:51) Ecg Monitoring (06/27/17:51) Bilateral Bp Monitoring (06/27/17 17:51) Iv Access Insert/Monitor (06/27/17 17:51) Oximetry (06/27/17 17:51) Oxygen Administration (06/27/17 17:51) Sodium Chloride 0.9% Flush (Ns Flush) (06/27/17 18:00) Urinalysis - C+S If Indicated (06/27/17 17:51) Influenzae A/B Antigen (06/27/17 17:51) Ct Brain W/O Iv Contrast(Rout) (06/27/17 ) Ct Cerv Spine W/O Contrast (06/27/17 ) Prochlorperazine Inj (Compazine Inj) (06/27/17 18:00) Tramadol (Ultram) (06/27/17 18:00) CKMB (06/27/17 18:15) CKMB% (06/27/17 18:15) Labs Laboratory Tests Test 06/27/17 18:15 06/27/17 18:20 White Blood Count 9.3 TH/MM3 Red Blood Count 4.79 MIL/MM3 Hemoglobin 12.1 GM/DL Hematocrit 36.4 % Mean Corpuscular Volume 76.0 FL Mean Corpuscular Hemoglobin 25.3 PG Mean Corpuscular Hemoglobin Concent 33.2 % Red Cell Distribution Width 14.4 % Platelet Count 197 TH/MM3 Mean Platelet Volume 8.8 FL Neutrophils (%) (Auto) 53.5 % Lymphocytes (%) (Auto) 37.4 % Monocytes (%) (Auto) 6.4 % Eosinophils (%) (Auto) 2.0 % Basophils (%) (Auto) 0.7 % Neutrophils # (Auto) 5.0 TH/MM3 Lymphocytes # (Auto) 3.5 TH/MM3 Monocytes # (Auto) 0.6 TH/MM3 Eosinophils # (Auto) 0.2 TH/MM3 Basophils # (Auto) 0.1 TH/MM3 CBC Comment DIFF FINAL Differential Comment Prothrombin Time 10.7 SEC Prothromb Time International Ratio 1.0 RATIO Activated Partial Thromboplast Time 25.3 SEC Blood Urea Nitrogen 21 MG/DL Creatinine 1.10 MG/DL Random Glucose 105 MG/DL Calcium Level 9.4 MG/DL Magnesium Level 2.0 MG/DL Sodium Level 138 MEQ/L Potassium Level 4.7 MEQ/L Chloride Level 106 MEQ/L Carbon Dioxide Level 25.0 MEQ/L Anion Gap 7 MEQ/L Estimat Glomerular Filtration Rate 58 ML/MIN Total Creatine Kinase 118 U/L Creatine Kinase MB 0.7 NG/ML Troponin I LESS THAN 0.02 NG/ML Urine Color LIGHT-YELLOW Urine Turbidity CLEAR Urine pH 5.0 Urine Specific [place] 1.009 Urine Protein NEG mg/dL Urine Glucose (UA) NEG mg/dL Urine Ketones NEG mg/dL Urine Occult Blood NEG Urine Nitrite NEG Urine Bilirubin NEG Urine Urobilinogen LESS THAN 2.0 MG/DL Urine Leukocyte Esterase MOD Urine RBC 1 /hpf Urine WBC 8 /hpf Urine Squamous Epithelial Cells <1 /hpf Urine Mucus FEW /lpf Microscopic Urinalysis Comment CULT NOT INDICATED MDM Medical Decision Making Medical Screen Exam Complete: Yes Emergency Medical Condition: Yes Interpretation(s) EKG: Sinus, rate 69, normal axis, normal intervals, no acute ischemic abnormality. Differential Diagnosis Tension headache, cluster headache, migraine headache, cervical strain, ACS, metabolic abnormality, vertigo, UTI, intracranial abnormality Narrative Course Initial vital signs show heart rate 81, blood pressure 139/65, pulse ox 99% on room air, oral temp of 98.3F. CBC is unremarkable. BMP is essentially unremarkable. Cardiac enzymes are negative. UA: Moderate leukocyte esterase, 8 WBCs, less than 1 squamous epithelial cell, few mucus, culture not indicated. Influenza is negative. CT head: CONCLUSION: 1. No acute intracranial abnormality is identified. 2. Chronic changes include generalized cerebral atrophy and mild chronic white matter changes. CT cervical spine: CONCLUSION: 1. No acute cervical spine abnormality is identified. However, there is severe degenerative disc disease and changes throughout the cervical spine, as above. 2. 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 3. There is severe left neural foraminal stenosis at C2-C3 and severe bilateral neural foraminal narrowing at C3-C4. The patient and the patient's daughter were made aware of all findings. The patient has chronic degenerative changes in her neck. She is actually here with a soft cervical collar of her own. There are no neurologic deficits. No urinary incontinence or retention. I discussed the cervical spine findings with the patient and the patient's daughter and told her that she may need surgery for this. I told him that I could contact our on-call neurosurgeon, however the patient's daughter states that they have an appointment with a new primary care physician this month and would like to see her first to come up with a plan. I believe that this is reasonable his most of these changes in the patient's neck or chronic. The patient was given Compazine and tramadol and reports improvement in her head pain and neck pain. She is stable for discharge home with further workup as an outpatient. She was informed on when to return to the emergency department. Both patient and the patient's daughter verbalize understanding and agreement with plan. Diagnosis Primary Impression: Headache Qualified Codes: R51 - Headache Additional Impressions: Neck pain Generalized weakness Referrals: Primary Care Physician 3 days Additional Instructions: Follow-up with your primary care physician this week. Return to the emergency department for worsening symptoms or any other concerns. Disposition: 01 DISCHARGE HOME Condition: Stable Braeden Armendariz MD Jun 27, 2017 18:09
[2017-06-27 18:18] VITALS: RESP 18; O2SAT 98
[2017-06-27 18:28] LABS: BASOPHIL # 0.1 TH/MM3 (0-0.2); BASOPHIL % 0.7 % (0.0-2.0); EOSINOPHIL # 0.2 TH/MM3 (0-0.4); HEMATOCRIT 36.4 % (35.0-46.0); HEMO FLAGS DIFF FINAL; LYMPH % 37.4 % (9.0-44.0); LYMPHOCYTE # 3.5 TH/MM3 (1.0-4.8); MEAN CORPUSCULAR HEMOGLOBIN 25.3 PG (27.0-34.0); MEAN CORPUSCULAR HGB CONC 33.2 % (32.0-36.0); MONO % 6.4 % (0.0-8.0); NEUT % 53.5 % (16.0-70.0); PLATELET COUNT 197 TH/MM3 (150-450); RED BLOOD COUNT 4.79 MIL/MM3 (4.00-5.30); RED CELL DISTRIBUTION WIDTH 14.4 % (11.6-17.2); WHITE BLOOD COUNT 9.3 TH/MM3 (4.0-11.0)
[2017-06-27 18:40] LABS: BLOOD, URINE NEG (NEG); GLUCOSE,URINE NEG (NEG); KETONE, URINE NEG (NEG); MUCUS URINE FEW /lpf (OCC); NITRITE,URINE NEG (NEG); SQUAMOUS EPITHELIAL CELL URINE <1 /hpf (0-5); URINE COLOR LIGHT-YELLOW (YELLW/STRAW)
[2017-06-27 18:41] LABS: COMMENT (UR) CULT NOT INDICATED; CULTURE IF INDICATED CULT NOT INDICATED
[2017-06-27 18:41] LABS: APTT (PATIENT) 25.3 SEC (24.3-30.1); PROTHROMBIN TIME - PATIENT 10.7 SEC (9.8-11.6)
--- NOTE | 2017-06-27 18:42 | RADRPT ---
EXAM DATE/TIME: 06/27/2017 18:16 [facility] COMPARISON: CT BRAIN W/O CONTRAST, April 29, 2017, 12:56. INDICATIONS : Headache. RADIATION DOSE: 56.35 CTDIvol (mGy) MEDICAL HISTORY : Cardiovascular disease. Hypertension. Gastroesophageal reflux disease.diabetes SURGICAL HISTORY : Hysterectomy. ENCOUNTER: Initial ACUITY: 2 days PAIN SCALE: 6/10 LOCATION: cranial TECHNIQUE: Multiple contiguous axial images were obtained of the head. Using automated exposure control and adj ustment of the mA and/or kV according to patient size, radiation dose was kept as low as reasonably a chievable to obtain optimal diagnostic quality images. DICOM format image data is available electro nically for review and comparison. FINDINGS: CEREBRUM: There is moderate generalized atrophy. Ventricles are stable in size. There is stable mild periventri cular white matter low attenuation. No midline shift, mass lesion, hemorrhage or acute infarction. No extra-axial fluid collections are seen. POSTERIOR FOSSA: The cerebellum and brainstem demonstrate no acute finding. The 4th ventricle is midline. The cerebe llopontine angle is unremarkable. EXTRACRANIAL: Visualized sinuses are clear. SKULL: The calvaria is intact. No evidence of skull fracture. CONCLUSION: 1. No acute intracranial abnormality is identified. 2. Chronic changes include generalized cerebral atrophy and mild chronic white matter changes. Klever Schroeder MD on June 27, 2017 at 18:39 Board Certified Radiologist. This report was verified electronically.
[2017-06-27 18:46] LABS: ANION GAP 7 MEQ/L (5-15); BLOOD UREA NITROGEN 21 MG/DL (7-18); CHLORIDE 106 MEQ/L (98-107); GLOMERULAR FILTRATION RATE 58 ML/MIN (>89); SODIUM (NA) 138 MEQ/L (136-145)
[2017-06-27 18:50] LABS: CREATINE KINASE 118 U/L (26-192)
[2017-06-27 18:51] LABS: POTASSIUM 4.7 MEQ/L (3.5-5.1)
--- NOTE | 2017-06-27 18:52 | RADRPT ---
EXAM DATE/TIME: 06/27/2017 18:16 [facility] COMPARISON: CT BRAIN W/O CONTRAST, June 27, 2017, 18:16. CT BRAIN W/O CONTRAST, December 31, 2016, 16:37. INDICATIONS : Neck pain without injury. RADIATION DOSE: 33.01 CTDIvol (mGy) MEDICAL HISTORY : Cardiovascular disease. Hypertension. Gastroesophageal reflux disease.Diabetes SURGICAL HISTORY : Hysterectomy. ENCOUNTER: Initial ACUITY: 2 days PAIN SCALE: 8/10 LOCATION: Bilateral neck TECHNIQUE: Volumetric scanning of the cervical spine was performed. Multiplanar reconstructions in the sagittal, coronal and oblique axial planes were performed. Using automated exposure control and adjustment o f the mA and/or kV according to patient size, radiation dose was kept as low as reasonably achievable to obtain optimal diagnostic quality images. DICOM format image data is available electronically f or review and comparison. FINDINGS: VERTEBRAE: No fracture is identified. There are bulky anterior endplate osteophytes at C4-C6. ALIGNMENT: No anterolisthesis or retrolisthesis. There is degenerative change at the left lateral mass of C1 and occipital condyle with joint space na rrowing and subchondral cystic change. Mineralized pannus is present posterior to the odontoid proces s extending posterior to the odontoid process by 10 mm causing narrowing of the spinal canal similar to a was seen on prior noncontrast head CT. Residual AP canal is 8 mm. There is likely mass effect on the spinal cord. C2-C3: There is osseous fusion of the left facet joint. Large left uncovertebral osteophyte is present. Ther e is no canal stenosis or significant right neural foraminal narrowing. There is severe left neural f oraminal stenosis. C3-C4: Decreased disc height is present with a diffuse posterior disc osteophyte complex. Mild right facet a rthrosis and severe left facet arthrosis. There is mild narrowing of the spinal canal with severe marlon ateral neural foraminal stenosis. C4-C5: Decreased disc height with anterior and posterior endplate osteophytes and diffuse posterior disc ost eophyte complex which mildly narrows the canal. There is also mild to moderate neural foraminal narro wing bilaterally. C5-C6: Decreased disc height with posterior disc osteophyte complex. No significant spinal canal stenosis or neural foraminal stenosis is appreciated. C6-C7: Decreased disc height with diffuse posterior disc osteophyte complex and uncovertebral osteophytes wi th mild narrowing of the spinal canal and severe right and moderate left neural foraminal stenosis. C7-T1: There is left facet arthrosis and left uncovertebral osteophyte causing moderate to severe left neura l foraminal narrowing. No canal stenosis or right neural foraminal stenosis is seen. Visualized paraspinous structures demonstrate no acute finding. CONCLUSION: 1. No acute cervical spine abnormality is identified. However, there is severe degenerative disc dise ase and changes throughout the cervical spine, as above. 2. At the C1-C2 level there is spinal canal stenosis caused by mineralized pannus posterior to the od ontoid process. 3. There is severe left neural foraminal stenosis at C2-C3 and severe bilateral neural foraminal narr owing at C3-C4. Klever Schroeder MD on June 27, 2017 at 18:41 Board Certified Radiologist. This report was verified electronically.
[2017-06-27 18:57] VITALS: BP_SYST 150; BP_SYST 156; BP_DIAS 76; BP_DIAS 78; PULSE 82
[2017-06-27 19:04] LABS: CKMB 0.7 NG/ML (0.5-3.6)
[2017-06-27 20:06] VITALS: BP 157/72; PULSE 70; RESP 16; O2SAT 99
--- NOTE | 2017-06-28 19:32 | EKG ---
Date Performed: 06/27/2017 Time Performed: 18:04:05 PTAGE: 76 years EKG: Sinus rhythm NORMAL ECG Since PREVIOUS TRACING , no significant change noted PREVIOUS TRACIN04/29/2017 12.43 DOCTOR: Darrion Orozco Interpretating Date/Time 06/28/2017 19:31:34
== END 2017-06-27 21:01 | disposition home or self-care (01) ==
LOC: NEPD 16:16
DX: R51 Headache (principal); M54.2 Cervicalgia; R53.1 Weakness; I42.9 Cardiomyopathy, unspecified
CPT/HCPCS: 70450; 72125; 80048; 81001; 82550; 82552; 83735; 84484; 85025; 85610; 85730; 87804; 93005; 96374; 99285; J0780

== ENCOUNTER 2017-10-19 20:25 | Observation (INO) | payer OTHER ==
[~2017-10-19 20:25] MED LIST changes: -LISI-515 PO; -MECL-62 PO; -MONT10TA4 PO
[2017-10-19 21:08] VITALS: BP 221/100; PULSE 96; RESP 18; TEMP 98.1; O2SAT 98
--- NOTE | 2017-10-19 21:21 | PD ---
HPI Chief Complaint: Chest Pain Time Seen by Provider: 21:09 Travel History International Travel<30 days: No Contact w/Intl Traveler<30days: No Traveled to known affect area: No History of Present Illness HPI 77 YO F with PMH HTN, DM since the ED for evaluation one-week history of intermittent chest pain, worsened by coughing and deep breathing. She endorses chronic nonproductive cough. Patient states that she feels as if her belly is twisting. She endorses one episode of nausea and vomiting. She endorses chronic constipation. She denies fever, chills, sinus congestion, rhinorrhea, back pain, dysuria, lower extremity edema. She states that she saw her primary care provider today and he wrote her some prescriptions but she doesn't know the medications are and she hasn't taken any. PFSH Past Medical History Hx Anticoagulant Therapy: No Arthritis: Yes Autoimmune Disease: No Blood Disorders: No Heart Rhythm Problems: No Cancer: No Cardiac Catheterization: No Cardiomyopathy: Yes Cardiovascular Problems: Yes High Cholesterol: Yes Chemotherapy: No Chest Pain: Yes Congestive Heart Failure: No Cerebrovascular Accident: No Diabetes: Yes Patient Takes Glucophage: No Diminished Hearing: No Gastrointestinal Disorders: No Glaucoma: Yes Genitourinary: No Heparin Induced Thrombocytopen: No Hypertension: Yes Musculoskeletal: Yes (L4-5 STENOSIS) Neurologic: No Psychiatric: No Respiratory: Yes ?: Not Menopausal: Yes Ovarian Cysts: Yes Past Surgical History Abdominal Surgery: No Appendectomy: Yes Cardiac Surgery: No Coronary Artery Bypass Graft: No Ear Surgery: No Endocrine Surgery: No Eye Surgery: No Genitourinary Surgery: No Gynecologic Surgery: Yes Hysterectomy: Yes Oral Surgery: No Pacemaker: No Thoracic Surgery: No Other Surgery: No Family History Family Myocardial Infarction: Yes Social History Alcohol Use: No Tobacco Use: No Substance Use: No Allergies-Medications (Allergen,Severity, Reaction): Coded Allergies: niacin (Unverified Allergy, Intermediate, rash, 10/20/17) acetaminophen (Unverified Allergy, Unknown, rash, 10/20/17) atorvastatin (Unverified Allergy, Unknown, MUSCLE SPASMS, 10/20/17) betamethasone (Unverified Allergy, Unknown, MUSCLE SPASMS, 10/20/17) carisoprodol (Unverified Allergy, Unknown, rash, 10/20/17) iodine (Unverified Allergy, Unknown, HIVES, 10/20/17) lovastatin (Unverified Allergy, Unknown, rash, 10/20/17) potassium iodide (Unverified Allergy, Unknown, HIVES, 10/20/17) povidone-iodine (Unverified Allergy, Unknown, HIVES, 10/20/17) sodium iodide (Unverified Allergy, Unknown, HIVES, 10/20/17) sodium iodide (Unverified Allergy, Unknown, HIVES, 10/20/17) hydrocodone (Unverified Adverse Reaction, Severe, BEHAVIORAL PSYCH, 10/20/17 ) gabapentin (Unverified Adverse Reaction, Unknown, DIZZINESS, 10/20/17) nabumetone (Unverified Adverse Reaction, Unknown, PSYCH BEHAVIORAL, 10/20/17 ) Uncoded Allergies: STATINS (Allergy, Mild, 08/10/06) NIASPAN (Adverse Reaction, Intermediate, 11/28/09) Reported Meds & Prescriptions Reported Meds & Active Scripts Active Reported Amoxicillin 500 Mg Tab 500 Mg PO BID Clarithromycin 500 Mg Tab 500 Mg PO BID Glimepiride 1 Mg Tab 1 Mg PO DAILY Take with breakfast or first main meal Lisinopril 5 Mg Tab 5 Mg PO DAILY Amlodipine (Amlodipine Besylate) 10 Mg Tab 10 Mg PO DAILY Meclizine (Meclizine HCl) 25 Mg Tab 25 Mg PO TID PRN Meloxicam 7.5 Mg Tab 7.5 Mg PO DAILY Montelukast (Montelukast Sodium) 10 Mg Tab 10 Mg PO HS Atorvastatin (Atorvastatin Calcium) 20 Mg Tab 20 Mg PO HS Pantoprazole (Pantoprazole Sodium) 40 Mg Tab 40 Mg PO DAILY Metformin (Metformin HCl) 500 Mg Tab 500 Mg PO DAILY With a meal Carvedilol 12.5 Mg Tab 12.5 Mg PO BID Review of Systems Except as stated in HPI: all other systems reviewed are Neg Physical Exam Narrative GENERAL: Petite, thin female in no acute distress. SKIN: Focused skin assessment warm/dry. HEAD: Normocephalic. Atraumatic. EYES: No scleral icterus. No injection or drainage. PERRLA. EOMI. NECK: Supple, trachea midline. No JVD or lymphadenopathy. CARDIOVASCULAR: Regular rate and rhythm without murmurs, gallops, or rubs. RESPIRATORY: Breath sounds clear and equal bilaterally. No accessory muscle use. GASTROINTESTINAL: Abdomen soft, nondistended. Tender to palpation the epigastric region. MUSCULOSKELETAL: No cyanosis, or edema. BACK: Nontender without obvious deformity. No CVA tenderness. Data Data Last Documented VS Vital Signs Date Time Temp Pulse Resp B/P (MAP) Pulse Ox O2 Delivery O2 Flow Rate FiO2 10/20/17 01:14 81 18 151/66 (94) 100 Nasal Cannula 2.00 10/19/17 21:08 98.1 Orders Orders Complete Blood Count With Diff (10/19/17 21:16) Comprehensive Metabolic Panel (10/19/17 21:16) B-Type Natriuretic Peptide (10/19/17 21:16) Act Partial Throm Time (Ptt) (10/19/17 21:16) Prothrombin Time / Inr (Pt) (10/19/17 21:16) Ckmb (Isoenzyme) Profile (10/19/17 21:16) Troponin I (10/19/17 21:16) Urinalysis - C+S If Indicated (10/19/17 21:16) Iv Access Insert/Monitor (10/19/17 21:16) Electrocardiogram (10/19/17 21:16) Ecg Monitoring (10/19/17 21:16) Oximetry (10/19/17 21:16) Oxygen Administration (10/19/17 21:16) Chest, Single Ap (10/19/17 21:16) Sodium Chloride 0.9% Flush (Ns Flush) (10/19/17 21:30) Lipase (10/19/17 21:16) Ct Abd/Pel W/O Iv Contrast (10/19/17 21:30) Continue Huber/Suprapubic Cath (10/19/17 23:35) Troponin I (10/20/17 00:13) Sodium Chlorid 0.9% 500 Ml Inj (Ns 500 M (10/20/17 01:30) Influenzae A/B Antigen (10/20/17 01:29) Admit Order (Ed Use Only) (10/20/17 01:37) Case Management Consult (10/20/17 ) Place In Observation (10/20/17 ) Vital Signs (Adult) Q4H (10/20/17 01:38) Activity Oob With Assistance (10/20/17 01:38) Diet Heart Healthy (10/20/17 Breakfast) Sodium Chloride 0.9% Flush (Ns Flush) (10/20/17 01:45) Sodium Chloride 0.9% Flush (Ns Flush) (10/20/17 09:00) Acetaminophen (Tylenol) (10/20/17 01:45) Ondansetron Inj (Zofran Inj) (10/20/17 01:45) Basic Metabolic Panel (Bmp) (10/21/17 06:00) Complete Blood Count With Diff (10/21/17 06:00) Pt Request For Service (10/20/17 01:38) Case Management Consult (10/20/17 01:38) Heparin Inj (Heparin Inj) (10/20/17 01:45) Naloxone Inj (Narcan Inj) (10/20/17 01:45) Docusate Sodium-Senna (Donna-Colace) (10/20/17 09:00) Magnesium Hydroxide Liq (Milk Of Magnesi (10/20/17 01:45) Sennosides (Senokot) (10/20/17 01:45) Bisacodyl Supp (Dulcolax Supp) (10/20/17 01:45) Lactulose Liq (Lactulose Liq) (10/20/17 01:45) Labs Laboratory Tests Test 10/19/17 23:00 10/19/17 23:42 10/20/17 00:28 White Blood Count 8.2 TH/MM3 Red Blood Count 5.12 MIL/MM3 Hemoglobin 12.6 GM/DL Hematocrit 38.7 % Mean Corpuscular Volume 75.7 FL Mean Corpuscular Hemoglobin 24.6 PG Mean Corpuscular Hemoglobin Concent 32.6 % Red Cell Distribution Width 14.9 % Platelet Count 211 TH/MM3 Mean Platelet Volume 8.3 FL Neutrophils (%) (Auto) 83.0 % Lymphocytes (%) (Auto) 15.1 % Monocytes (%) (Auto) 1.5 % Eosinophils (%) (Auto) 0.1 % Basophils (%) (Auto) 0.3 % Neutrophils # (Auto) 6.8 TH/MM3 Lymphocytes # (Auto) 1.2 TH/MM3 Monocytes # (Auto) 0.1 TH/MM3 Eosinophils # (Auto) 0.0 TH/MM3 Basophils # (Auto) 0.0 TH/MM3 CBC Comment DIFF FINAL Differential Comment Prothrombin Time 11.4 SEC Prothromb Time International Ratio 1.1 RATIO Activated Partial Thromboplast Time 22.3 SEC Blood Urea Nitrogen 16 MG/DL Creatinine 0.75 MG/DL Random Glucose 118 MG/DL Total Protein 7.8 GM/DL Albumin 4.2 GM/DL Calcium Level 8.7 MG/DL Alkaline Phosphatase 56 U/L Aspartate Amino Transf (AST/SGOT) 18 U/L Alanine Aminotransferase (ALT/SGPT) 24 U/L Total Bilirubin 0.7 MG/DL Sodium Level 136 MEQ/L Potassium Level 3.2 MEQ/L Chloride Level 99 MEQ/L Carbon Dioxide Level 25.1 MEQ/L Anion Gap 12 MEQ/L Estimat Glomerular Filtration Rate 90 ML/MIN Total Creatine Kinase 80 U/L Troponin I LESS THAN 0.02 NG/ML LESS THAN 0.02 NG/ML B-Type Natriuretic Peptide 92 PG/ML Lipase 103 U/L Urine Color LIGHT-YELLOW Urine Turbidity CLEAR Urine pH 7.5 Urine Specific Archer 1.012 Urine Protein 30 mg/dL Urine Glucose (UA) NEG mg/dL Urine Ketones 10 mg/dL Urine Occult Blood NEG Urine Nitrite NEG Urine Bilirubin NEG Urine Urobilinogen LESS THAN 2.0 MG/DL Urine Leukocyte Esterase NEG Urine RBC 2 /hpf Urine WBC 1 /hpf Urine Yeast with Hyphae RARE Microscopic Urinalysis Comment CULT NOT INDICATED MDM Medical Decision Making Medical Screen Exam Complete: Yes Emergency Medical Condition: Yes Differential Diagnosis pleurisy versus chest pain versus pancreatitis versus ACS versus bowel obstruction versus other Narrative Course 77 YO F with PMH HTN, DM since the ED for evaluation one-week history of intermittent chest pain, worsened by coughing and deep breathing. She endorses chronic nonproductive cough. Describes the pain as a twisting in her belly. She endorses one episode of nausea and vomiting. She endorses chronic constipation. She saw her PCP today and was prescribed some medications. She is unsure what those are and she hasn't taken any of them. Pulse 96, BP 221/ 100 on presentation. O2 sats 98% on 2 L nasal cannula. On exam the patient is a frail -[place] female in no acute distress. She does have some tenderness in the upper abdominal quadrants but the exam is otherwise unremarkable. IV was established. She was administered half liter of normal saline. Lab work, EKG, radiological studies ordered and pending. The patient signed out to Dr. Valentine at end of shift. Please see his note for disposition. Elena Ledesma Oct 19, 2017 21:21
[2017-10-19] MEDS ORDERED: SODIUM CHLORIDE 0.9% FLUSH 10 ML FLUSH IVF PRN (21:30)
--- NOTE | 2017-10-19 22:13 | RADRPT ---
EXAM DATE/TIME: 10/19/2017 21:37 [facility] COMPARISON: CHEST SINGLE AP, October 18, 2015, 14:00. INDICATIONS : Chest pain, nausea, vomiting. MEDICAL HISTORY : Hypertension. Diabetes mellitus type II. SURGICAL HISTORY : None. ENCOUNTER: Initial ACUITY: 2 weeks PAIN SCORE: 3/10 LOCATION: Bilateral chest FINDINGS: A single view of the chest demonstrates the lungs to be symmetrically aerated without evidence of mas s, infiltrate or effusion. The cardiomediastinal contours are unremarkable. Osseous structures are intact. CONCLUSION: The lungs are clear. Rinku Brooks MD on October 19, 2017 at 22:11 Board Certified Radiologist. This report was verified electronically.
[2017-10-19 22:24] VITALS: BP 195/81; PULSE 77; RESP 18; O2SAT 98
[2017-10-19 22:25] VITALS: O2SAT 98
--- NOTE | 2017-10-19 23:15 | RADRPT ---
EXAM DATE/TIME: 10/19/2017 22:33 [facility] COMPARISON: No previous studies available for comparison. INDICATIONS : Epigastric abdominal pain. ORAL CONTRAST: No oral contrast ingested. RADIATION DOSE: 6.64 CTDIvol (mGy) MEDICAL HISTORY : Hypertension. Gastroesophageal reflux disease. Diabetes. SURGICAL HISTORY : Appendectomy. Hysterectomy. ENCOUNTER: Initial ACUITY: 2 days PAIN SCALE: 5/10 LOCATION: Epigastric. TECHNIQUE: Volumetric scanning of the abdomen and pelvis was performed. Using automated exposure control and ad justment of the mA and/or kV according to patient size, radiation dose was kept as low as reasonably achievable to obtain optimal diagnostic quality images. DICOM format image data is available electro nically for review and comparison. FINDINGS: LOWER LUNGS: The visualized lower lungs are clear. LIVER: Homogeneous density without lesion noncontrast technique.. There is no dilation of the biliary tree. No calcified gallstones. SPLEEN: Normal size without lesion. PANCREAS: Within normal limits. KIDNEYS: Normal in size and shape. There is no mass, stone, or hydronephrosis. ADRENAL GLANDS: Within normal limits. VASCULAR: There is no aortic aneurysm. BOWEL/MESENTERY: No dilated loops of small or large bowel. The appendix is identified in the right lower quadrant and has a normal appearance. ABDOMINAL WALL: Within normal limits. RETROPERITONEUM: There is no lymphadenopathy. BLADDER: Mildly distended. No wall thickening or mass. REPRODUCTIVE: Within normal limits. INGUINAL: There is no lymphadenopathy or hernia. MUSCULOSKELETAL: Hypertrophic degenerative changes in the posterior elements throughout the lumbar spine with moderate spinal stenosis L3-4 L4-5 levels. Enthesopathic ossification present at the hamstring insertions bi laterally. CONCLUSION: 1. Mildly distended urinary bladder. 2. Spinal stenosis at L3-4 and L4-5. 3. Otherwise negative CT abdomen/pelvis without contrast. Rinku Brooks MD on October 19, 2017 at 23:10 Board Certified Radiologist. This report was verified electronically.
[2017-10-19 23:17] VITALS: BP 129/60; PULSE 88; RESP 18; O2SAT 100
[2017-10-19 23:17] LABS: AUTOMATED NEUTROPHIL # 6.8 TH/MM3 (1.8-7.7); BASOPHIL % 0.3 % (0.0-2.0); EOSINOPHIL % 0.1 % (0.0-4.0); HEMATOCRIT 38.7 % (35.0-46.0); HEMOGLOBIN 12.6 GM/DL (11.6-15.3); LYMPH % 15.1 % (9.0-44.0); LYMPHOCYTE # 1.2 TH/MM3 (1.0-4.8); MEAN CELL VOLUME 75.7 FL (80.0-100.0); MEAN CORPUSCULAR HEMOGLOBIN 24.6 PG (27.0-34.0); MEAN CORPUSCULAR HGB CONC 32.6 % (32.0-36.0); MEAN PLATELET VOLUME 8.3 FL (7.0-11.0); MONO % 1.5 % (0.0-8.0); MONOCYTE # 0.1 TH/MM3 (0-0.9); PLATELET COUNT 211 TH/MM3 (150-450); RED BLOOD COUNT 5.12 MIL/MM3 (4.00-5.30); RED CELL DISTRIBUTION WIDTH 14.9 % (11.6-17.2); WHITE BLOOD COUNT 8.2 TH/MM3 (4.0-11.0)
[2017-10-19] MEDS ORDERED: AMLO10TA2 PO (23:30)
[2017-10-19] MEDS ORDERED: CLAR500T PO (23:30)
[2017-10-19] MEDS ORDERED: AMOX500T PO (23:30)
[2017-10-19] MEDS ORDERED: MELO7.5T27 PO (23:30)
[2017-10-19] MEDS ORDERED: MONT10TA4 PO (23:30)
[2017-10-19] MEDS ORDERED: GLIM1TAB PO (23:30)
[2017-10-19] MEDS ORDERED: MECL-62 PO (23:30)
[2017-10-19] MEDS ORDERED: LISI-519 PO (23:30)
[2017-10-19 23:35] LABS: INTERNATIONAL NORMALIZED RATIO 1.1 RATIO; PROTHROMBIN TIME - PATIENT 11.4 SEC (9.8-11.6)
[2017-10-19 23:37] LABS: ALBUMIN 4.2 GM/DL (3.4-5.0); AST (GOT) 18 U/L (15-37); BICARBONATE 25.1 MEQ/L (21.0-32.0); BLOOD UREA NITROGEN 16 MG/DL (7-18); CALCIUM 8.7 MG/DL (8.5-10.1); CHLORIDE 99 MEQ/L (98-107); CREATININE 0.75 MG/DL (0.50-1.00); GLOMERULAR FILTRATION RATE 90 ML/MIN (>89); GLUCOSE,RANDOM 118 MG/DL (74-106); SODIUM (NA) 136 MEQ/L (136-145)
[2017-10-19 23:42] LABS: ALKALINE PHOSPHATASE 56 U/L (45-117); ALT (GPT) 24 U/L (10-53); TOTAL BILIRUBIN ADULT 0.7 MG/DL (0.2-1.0); TOTAL PROTEIN 7.8 GM/DL (6.4-8.2); TROPONIN I LESS THAN 0.02 NG/ML (0.02-0.05)
[2017-10-20] VITALS (11 sets, daily range): BP systolic 132–167; BP diastolic 61–77; PULSE 63–81; RESP 12–20; TEMP 97.9–99.2; O2SAT 98–100
[2017-10-20 00:06] LABS: BILIRUBIN, URINE NEG (NEG); BLOOD, URINE NEG (NEG); GLUCOSE,URINE NEG (NEG); KETONE, URINE 10 mg/dL (NEG); NITRITE,URINE NEG (NEG); PH, URINE 7.5 (5.0-8.5); URINE COLOR LIGHT-YELLOW (YELLW/STRAW); URINE LEUKOCYTE ESTERASE NEG (NEG)
[2017-10-20] MEDS ORDERED: SODIUM CHLORID 0.9% 500 ML INJ 500 ML IV ONE (01:30)
[2017-10-20] MEDS ORDERED: ACETAMINOPHEN 325 MG TAB PO PRN (01:45)
[2017-10-20] MEDS ORDERED: GLUCAGON 1 MG/ML VIAL OTHER PRN (01:45)
[2017-10-20] MEDS ORDERED: SODIUM CHLORIDE 0.9% FLUSH 10 ML FLUSH IV FLUSH PRN (01:45)
[2017-10-20] MEDS ORDERED: MAGNESIUM HYDROXIDE SUSP 30 ML CUP PO PRN (01:45)
[2017-10-20] MEDS ORDERED: DEXTROSE 50% IN WATER 50 ML VIAL(D50) IV PUSH PRN (01:45)
[2017-10-20] MEDS ORDERED: SENNOSIDES 8.6 MG TAB PO PRN (01:45)
[2017-10-20] MEDS ORDERED: BISACODYL 10 MG SUPP RECTAL PRN (01:45)
[2017-10-20] MEDS ORDERED: ONDANSETRON HCL 4 MG/2 ML VIAL IVP PRN (01:45)
[2017-10-20] MEDS ORDERED: NALOXONE HCL 0.4 MG/ML AMP IV PUSH PRN (01:45)
[2017-10-20] MEDS ORDERED: LACTULOSE SYRUP 20 GM/30 ML CUP PO PRN (01:45)
[2017-10-20] MEDS: HEPARIN SODIUM - SQ 10,000 UNITS/ML VIAL SQ SCH ×2 (01:47→13:14)
[2017-10-20] MEDS ORDERED: CLOPIDOGREL 75 MG TAB PO ONE (04:00)
[2017-10-20] MEDS: INSULIN ASPART SUPPLEMENTAL SCALE SQ SCH ×4 (08:00→21:00)
[2017-10-20] MEDS: CARVEDILOL 12.5 MG TAB PO SCH ×2 (08:48→20:45)
[2017-10-20] MEDS: SODIUM CHLORIDE 0.9% FLUSH 10 ML FLUSH IV FLUSH SCH ×2 (08:48→20:44)
[2017-10-20] MEDS: PANTOPRAZOLE SOD 40 MG DELAYED RELEASE TAB PO SCH (08:48)
[2017-10-20] MEDS: LISINOPRIL 5 MG TAB PO SCH (08:48)
[2017-10-20] MEDS: DOCUSATE SODIUM 50 MG/SENNA 8.6 MG TAB PO SCH ×2 (09:05→20:45)
[2017-10-20 11:05] LABS: AUTOMATED NEUTROPHIL # 6.2 TH/MM3 (1.8-7.7); BASOPHIL % 0.3 % (0.0-2.0); EOSINOPHIL % 0.2 % (0.0-4.0); HEMATOCRIT 36.3 % (35.0-46.0); HEMOGLOBIN 12.3 GM/DL (11.6-15.3); LYMPH % 28.8 % (9.0-44.0); LYMPHOCYTE # 2.8 TH/MM3 (1.0-4.8); MEAN CORPUSCULAR HEMOGLOBIN 25.4 PG (27.0-34.0); MEAN CORPUSCULAR HGB CONC 33.8 % (32.0-36.0); MEAN PLATELET VOLUME 8.5 FL (7.0-11.0); MONO % 7.7 % (0.0-8.0); MONOCYTE # 0.8 TH/MM3 (0-0.9); PLATELET COUNT 207 TH/MM3 (150-450); RED BLOOD COUNT 4.84 MIL/MM3 (4.00-5.30); RED CELL DISTRIBUTION WIDTH 15.1 % (11.6-17.2); WHITE BLOOD COUNT 9.9 TH/MM3 (4.0-11.0)
--- NOTE | 2017-10-20 11:10 | EKG ---
Date Performed: 10/19/2017 Time Performed: 22:17:24 PTAGE: 77 years EKG: Sinus rhythm WITH OCCASIONAL VENTRICULAR PREMATURE COMPLEXES BORDERLINE ECG PREVIOUS TRACING : 06/27/2017 18.04 DOCTOR: Wilfrido Barrow Interpretating Date/Time 10/20/2017 11:08:37
[2017-10-20 11:18] LABS: BICARBONATE 27.4 MEQ/L (21.0-32.0); BLOOD UREA NITROGEN 17 MG/DL (7-18); CALCIUM 9.3 MG/DL (8.5-10.1); CHLORIDE 102 MEQ/L (98-107); CREATININE 0.83 MG/DL (0.50-1.00); GLOMERULAR FILTRATION RATE 80 ML/MIN (>89); GLUCOSE,RANDOM 167 MG/DL (74-106); SODIUM (NA) 136 MEQ/L (136-145)
[2017-10-20 11:21] LABS: TROPONIN I LESS THAN 0.02 NG/ML (0.02-0.05)
--- NOTE | 2017-10-20 12:20 | HHI.HP ---
[facility] Admission Diagnosis Dehydration, FTT Diagnoses: Chief Complaint: lightheadedness, syncope Travel History International Travel<30 Days: No Contact w/Intl Traveler <30 Da: No Traveled to Known Affected Are: No History of Present Illness Written by Izzy Chavira, acting as scribe for Dr. Nuñez on 10/20/17 at 12:17. 77-year-old female with history of DM, HTN, HLD, arthritis, glaucoma, L4-5 stenosis, presents with a 2 day history of lightheadedness and episode of syncope. The patient is currently seen in the observation unit, she states she is in a hospital in [place], then remembers she is in [facility]; does not know the date, but is able to provide some history leading up to her admission. She states she has felt sick over the past few days, with lightheadedness and near syncope. She states her stomach just felt like it was "crawling". She states she has been eating well up until yesterday. She reports nausea, but no vomiting. Denies any diarrhea. She has felt constipated, last BM 2 days ago. She does take Miralax daily for constipation. Yesterday when she attempted to ambulate, she felt short of breath and as if she was going to pass out, so she had to sit back down. She doesn't remember much after that, therefore she believes she may have passed out. She does remember being transported to the hospital. The daughter is at bedside and assists with the history. The daughter states the patient seems a little confused at times today. The daughter states the patient hasn't been eating well at least over the past week. The patient lives alone. Denies fevers/chills, headache, chest pain, palpitations, or urinary complaints. No other medical complaints reported at this time. Review of Systems Except as stated in HPI: all other systems reviewed are Neg Past Family Social History Past Medical History DM HTN HLD arthritis glaucoma L4-5 stenosis Past Surgical History Appendectomy Hysterectomy Reported Medications Glimepiride 1 Mg Tab 1 Mg PO DAILY Take with breakfast or first main meal Lisinopril 5 Mg Tab 5 Mg PO DAILY Amlodipine (Amlodipine Besylate) 10 Mg Tab 10 Mg PO DAILY Meclizine (Meclizine HCl) 25 Mg Tab 25 Mg PO TID PRN Meloxicam 7.5 Mg Tab 7.5 Mg PO DAILY Montelukast (Montelukast Sodium) 10 Mg Tab 10 Mg PO HS Atorvastatin (Atorvastatin Calcium) 20 Mg Tab 20 Mg PO HS Pantoprazole (Pantoprazole Sodium) 40 Mg Tab 40 Mg PO DAILY Metformin (Metformin HCl) 500 Mg Tab 500 Mg PO DAILY With a meal Carvedilol 12.5 Mg Tab 12.5 Mg PO BID Allergies: Coded Allergies: niacin (Unverified Allergy, Intermediate, rash, 10/20/17) acetaminophen (Unverified Allergy, Unknown, rash, 10/20/17) atorvastatin (Unverified Allergy, Unknown, MUSCLE SPASMS, 10/20/17) betamethasone (Unverified Allergy, Unknown, MUSCLE SPASMS, 10/20/17) carisoprodol (Unverified Allergy, Unknown, rash, 10/20/17) iodine (Unverified Allergy, Unknown, HIVES, 10/20/17) lovastatin (Unverified Allergy, Unknown, rash, 10/20/17) potassium iodide (Unverified Allergy, Unknown, HIVES, 10/20/17) povidone-iodine (Unverified Allergy, Unknown, HIVES, 10/20/17) sodium iodide (Unverified Allergy, Unknown, HIVES, 10/20/17) sodium iodide (Unverified Allergy, Unknown, HIVES, 10/20/17) hydrocodone (Unverified Adverse Reaction, Severe, BEHAVIORAL PSYCH, 10/20/17 ) gabapentin (Unverified Adverse Reaction, Unknown, DIZZINESS, 10/20/17) nabumetone (Unverified Adverse Reaction, Unknown, PSYCH BEHAVIORAL, 10/20/17 ) Uncoded Allergies: STATINS (Allergy, Mild, 08/10/06) NIASPAN (Adverse Reaction, Intermediate, 11/28/09) Active Ordered Medications Current Medications Medications (Trade) Dose Ordered Sig/Katty Route Start Time Stop Time Status Last Admin (NS Flush) 2 ml UNSCH PRN IV FLUSH 10/20/17 01:45 10/20/17 13:14 (NS Flush) 2 ml BID IV FLUSH 10/20/17 09:00 10/20/17 08:48 (Tylenol) 650 mg Q4H PRN PO 10/20/17 01:45 (Zofran Inj) 4 mg Q6H PRN IVP 10/20/17 01:45 (Heparin Inj) 5,000 units Q12H SQ 10/20/17 01:45 10/20/17 13:14 (Narcan Inj) 0.4 mg UNSCH PRN IV PUSH 10/20/17 01:45 (Donna-Colace) 1 tab BID PO 10/20/17 09:00 10/20/17 09:05 (Milk Of Magnesia Liq) 30 ml Q12H PRN PO 10/20/17 01:45 (Senokot) 17.2 mg Q12H PRN PO 10/20/17 01:45 (Dulcolax Supp) 10 mg DAILY PRN RECTAL 10/20/17 01:45 (Lactulose Liq) 30 ml DAILY PRN PO 10/20/17 01:45 (Norvasc) 10 mg DAILY PO 10/20/17 09:00 10/20/17 08:48 (Lipitor) 20 mg HS PO 10/20/17 21:00 (Coreg) 12.5 mg BID PO 10/20/17 09:00 10/20/17 08:48 (Prinivil) 5 mg DAILY PO 10/20/17 09:00 10/20/17 08:48 (Protonix) 40 mg DAILY PO 10/20/17 09:00 10/20/17 08:48 (D50w (Vial) Inj) 50 ml UNSCH PRN IV PUSH 10/20/17 01:45 (Glucagon Inj) 1 mg UNSCH PRN OTHER 10/20/17 01:45 (NovoLOG SUPPLEMENTAL SCALE) 1 ACHS SLIDING SCALE SQ 10/20/17 08:00 Potassium Chloride/Sodium Chloride 1,000 ml @ 60 mls/hr [id number] IV 10/20/17 12:30 10/20/17 23:55 10/20/17 13:14 Family History Sister with heart attack Social History Denies any alcohol or illicit drug use. Denies smoking, but does chew tobacco. Physical Exam Vital Signs Vital Signs Date Time Temp Pulse Resp B/P (MAP) Pulse Ox O2 Delivery O2 Flow Rate FiO2 10/20/17 11:55 97.9 72 12 167/77 (107) 98 161/74 (103) 153/71 (98) 10/20/17 11:30 70 18 132/68 (89) 99 10/20/17 07:37 74 18 166/74 (104) 100 Room Air 10/20/17 05:09 79 18 141/63 (89) 100 Nasal Cannula 2.00 10/20/17 03:15 81 20 135/61 (85) 99 Nasal Cannula 2.00 10/20/17 01:14 81 18 151/66 (94) 100 Nasal Cannula 2.00 10/19/17 23:17 88 18 129/60 (83) 100 Nasal Cannula 2.00 10/19/17 22:25 98 Nasal Cannula 2.00 10/19/17 22:25 98 Nasal Cannula 2.00 10/19/17 22:24 77 18 195/81 (119) 98 Nasal Cannula 2.00 10/19/17 21:08 98.1 96 18 221/100 (140) 98 Physical Exam GENERAL: Well-nourished, well-developed thin elderly female patient in [facility]. SKIN: Warm and dry. No rash. HEAD: Normocephalic. Atraumatic. EYES: Pupils equal and round. No scleral icterus. No injection or drainage. ENT: No nasal bleeding or discharge. Mucous membranes pink and moist. NECK: Supple. Trachea midline. CARDIOVASCULAR: Regular rate and rhythm. S1, S2 noted. No murmur appreciated. RESPIRATORY: No accessory muscle use. Clear to auscultation. Breath sounds equal bilaterally. GASTROINTESTINAL: Abdomen soft, non-tender, nondistended. Normoactive bowel sounds x4. MUSCULOSKELETAL: No obvious deformities. Extremities without clubbing, cyanosis , or edema. NEUROLOGICAL: Awake and alert. No obvious cranial nerve deficits. Motor grossly within normal limits. Normal speech. PSYCHIATRIC: Appropriate mood and affect; insight and judgment normal. Laboratory Laboratory Tests Test 10/19/17 23:00 10/19/17 23:42 10/20/17 00:28 10/20/17 10:20 White Blood Count 8.2 Red Blood Count 5.12 Hemoglobin 12.6 Hematocrit 38.7 Mean Corpuscular Volume 75.7 Mean Corpuscular Hemoglobin 24.6 Mean Corpuscular Hemoglobin Concent 32.6 Red Cell Distribution Width 14.9 Platelet Count 211 Mean Platelet Volume 8.3 Neutrophils (%) (Auto) 83.0 Lymphocytes (%) (Auto) 15.1 Monocytes (%) (Auto) 1.5 Eosinophils (%) (Auto) 0.1 Basophils (%) (Auto) 0.3 Neutrophils # (Auto) 6.8 Lymphocytes # (Auto) 1.2 Monocytes # (Auto) 0.1 Eosinophils # (Auto) 0.0 Basophils # (Auto) 0.0 CBC Comment DIFF FINAL Differential Comment Prothrombin Time 11.4 Prothromb Time International Ratio 1.1 Activated Partial Thromboplast Time 22.3 Blood Urea Nitrogen 16 17 Creatinine 0.75 0.83 Random Glucose 118 167 Total Protein 7.8 Albumin 4.2 Calcium Level 8.7 9.3 Alkaline Phosphatase 56 Aspartate Amino Transf (AST/SGOT) 18 Alanine Aminotransferase (ALT/SGPT) 24 Total Bilirubin 0.7 Sodium Level 136 136 Potassium Level 3.2 3.3 Chloride Level 99 102 Carbon Dioxide Level 25.1 27.4 Anion Gap 12 7 Estimat Glomerular Filtration Rate 90 80 Total Creatine Kinase 80 Troponin I LESS THAN 0.02 LESS THAN 0.02 LESS THAN 0.02 B-Type Natriuretic Peptide 92 Lipase 103 Urine Color LIGHT-YELLOW Urine Turbidity CLEAR Urine pH 7.5 Urine Specific [place] 1.012 Urine Protein 30 Urine Glucose (UA) NEG Urine Ketones 10 Urine Occult Blood NEG Urine Nitrite NEG Urine Bilirubin NEG Urine Urobilinogen LESS THAN 2.0 Urine Leukocyte Esterase NEG Urine RBC 2 Urine WBC 1 Urine Yeast with Hyphae RARE Microscopic Urinalysis Comment CULT NOT INDICATED Magnesium Level 1.7 Test 10/20/17 10:40 White Blood Count 9.9 Red Blood Count 4.84 Hemoglobin 12.3 Hematocrit 36.3 Mean Corpuscular Volume 75.0 Mean Corpuscular Hemoglobin 25.4 Mean Corpuscular Hemoglobin Concent 33.8 Red Cell Distribution Width 15.1 Platelet Count 207 Mean Platelet Volume 8.5 Neutrophils (%) (Auto) 63.0 Lymphocytes (%) (Auto) 28.8 Monocytes (%) (Auto) 7.7 Eosinophils (%) (Auto) 0.2 Basophils (%) (Auto) 0.3 Neutrophils # (Auto) 6.2 Lymphocytes # (Auto) 2.8 Monocytes # (Auto) 0.8 Eosinophils # (Auto) 0.0 Basophils # (Auto) 0.0 CBC Comment DIFF FINAL Differential Comment Date/Time Source Procedure Growth Status 10/20/17 01:52 Nasal Washing Influenza Types A,B Antigen (KATEY) - Final NEGATIVE FOR FLU A AND B ANTIGEN.... Complete Result Diagram: 10/20/17 1040 10/20/17 1020 Imaging Last Impressions Head CT 10/20/17 0000 Signed Impressions: Service Date/Time: Friday, October 20, 2017 12:45 - CONCLUSION: 1. Cerebral atrophy with chronic ischemic changes left parietal lobe. 2. No acute intracranial abnormality. Zeferino Webb MD Abdomen/Pelvis CT [id number] Signed Impressions: Service Date/Time: Thursday, October 19, 2017 22:33 - CONCLUSION: 1. Mildly distended urinary bladder. 2. Spinal stenosis at L3-4 and L4-5. 3. Otherwise negative CT abdomen/pelvis without contrast. Rinku Brooks MD Chest X-Ray [id number] Signed Impressions: Service Date/Time: Thursday, October 19, 2017 21:37 - CONCLUSION: The lungs are clear. Rinku Brooks MD Caprini VTE Risk Assessment Caprini VTE Risk Assessment: Mod/High Risk (score >= 2) Caprini Risk Assessment Model Point Value = 1 Point Value = 2 Point Value = 3 Point Value = 5 Age 41-60 Minor surgery BMI > 25 kg/m2 Swollen legs Varicose veins or History of unexplained or recurrent spontaneous Oral contraceptives or hormone replacement Sepsis (< 1 month) Serious lung disease, including pneumonia (< 1 month) Abnormal pulmonary function Acute myocardial infarction Congestive heart failure (< 1 month) History of inflammatory bowel disease Medical patient at bed rest Age 61-74 Arthroscopic surgery Major open surgery (> 45 min) Laparoscopic surgery (> 45 min) Malignancy Confined to bed (> 72 hours) Immobilizing plaster cast Central venous access Age >= 75 History of VTE Family history of VTE Factor V Leiden Prothrombin [id number] Lupus anticoagulant Anticardiolipin antibodies Elevated serum homocysteine Heparin-induced thrombocytopenia Other congenital or acquired thrombophilia Stroke (< 1 month) Elective arthroplasty Hip, pelvis, or leg fracture Acute spinal cord injury (< 1 month) Prophylaxis Regimen Total Risk Factor Score Risk Level Prophylaxis Regimen 0-1 Low Early ambulation 2 Moderate Order ONE of the following: *Sequential Compression Device (SCD) *Heparin 5000 units SQ BID 3-4 Higher Order ONE of the following medications: *Heparin 5000 units SQ TID *Enoxaparin/Lovenox 40 mg SQ daily (WT < 150 kg, CrCl > 30 mL/min) *Enoxaparin/Lovenox 30 mg SQ daily (WT < 150 kg, CrCl > 10-29 mL/min) *Enoxaparin/Lovenox 30 mg SQ BID (WT < 150 kg, CrCl > 30 mL/min) AND/OR *Sequential Compression Device (SCD) 5 or more Highest Order ONE of the following medications: *Heparin 5000 units SQ TID (Preferred with Epidurals) *Enoxaparin/Lovenox 40 mg SQ daily (WT < 150 kg, CrCl > 30 mL/min) *Enoxaparin/Lovenox 30 mg SQ daily (WT < 150 kg, CrCl > 10-29 mL/min) *Enoxaparin/Lovenox 30 mg SQ BID (WT < 150 kg, CrCl > 30 mL/min) AND *Sequential Compression Device (SCD) Assessment and Plan Problem List: (1) Syncope ICD Code: R55 - Syncope and collapse (2) Dehydration ICD Code: E86.0 - Dehydration Assessment and Plan 77-year-old female with history of DM, HTN, HLD, arthritis, glaucoma, L4-5 stenosis, presents with a 2 day history of lightheadedness and episode of syncope. Syncope: suspect secondary to dehydration, patient with recent poor oral intake , nausea, and vomiting. -Influenza negative. UA negative. CXR images reviewed and unremarkable. -Head CT images reviewed, shows cerebral atrophy with chronic ischemic changes left parietal lobe; otherwise no acute findings -ACS ruled out with negative serial cardiac enzymes -orthostatics negative, however checked after patient hydrated with IVF -monitor on telemetry -fall precautions -Check EEG -Consult PT/OT Abdominal Discomfort/Nausea/Vomiting/Poor Appetite: possible gastroenteritis. -abdomen/pelvis CT images reviewed, shows mildly distended urinary bladder; other no acute abdominal abnormalities -Huber placed in ED with initial volume only 250cc, UA negative, will remove Huber -supportive treatment with IVF hydration, antiemetics prn -monitor for improvement Hypokalemia: K 3.2. Likely secondary to poor oral intake. -give replacement with IV KCl -repeat labs in am Diabetes Mellitus: chronic -hold patient's metformin and glimepiride for now -monitor Accu-checks, cover with SSI -check HgbA1c Hypertension: chronic -continue patient's carvedilol, amlodipine, and lisinopril -monitor BP, adjust antihypertensives as needed All other chronic medical conditions stable, continue home meds as appropriate. DVT Prophylaxis: Heparin sq Discussed Condition With Patient, Patient's Daughter, RN This note was transcribed by renetta Chavira. I, Dr. Faustino Nuñez personally performed the history, physical exam, and medical decision making; and confirmed the accuracy of the information in the transcribed note. Authenticated by Dr. Faustino Nuñez on 10/20/17 at 12:25. Izzy Chavira PA-C Oct 20, 2017 12:20 Faustino Nuñez MD Oct 20, 2017 12:25
[2017-10-20] MEDS ORDERED: NS + KCL 20 MEQ INJ 1,000 ML IV SCH (12:30)
--- NOTE | 2017-10-20 12:55 | RADRPT ---
EXAM DATE/TIME: 10/20/2017 12:45 [facility] COMPARISON: CT BRAIN W/O CONTRAST, June 27, 2017, 18:16. INDICATIONS : Patient had syncople episode today . RADIATION DOSE: 36.21 CTDIvol (mGy) MEDICAL HISTORY : Hypertension. Diabetes mellitus type 2. Cardiovascular disease SURGICAL HISTORY : Hysterectomy. ENCOUNTER: Initial ACUITY: 1 day PAIN SCALE: 0/10 LOCATION: Bilateral cranial TECHNIQUE: Multiple contiguous axial images were obtained of the head. Using automated exposure control and adj ustment of the mA and/or kV according to patient size, radiation dose was kept as low as reasonably a chievable to obtain optimal diagnostic quality images. DICOM format image data is available electro nically for review and comparison. FINDINGS: CEREBRUM: The ventricles are mildly prominent but unchanged. No evidence of midline shift, mass lesion, hemorr jaleel or acute infarction. No extra-axial fluid collections are seen. Chronic ischemic changes left p arietal lobe periventricular region. POSTERIOR FOSSA: The cerebellum and brainstem are intact. The 4th ventricle is midline. The cerebellopontine angle i s unremarkable. EXTRACRANIAL: The visualized portion of the orbits is intact. SKULL: The calvaria is intact. No evidence of skull fracture. CONCLUSION: 1. Cerebral atrophy with chronic ischemic changes left parietal lobe. 2. No acute intracranial abnormality. Zeferino Webb MD on October 20, 2017 at 12:52 Board Certified Radiologist. This report was verified electronically.
[2017-10-20] MEDS ORDERED: ATORVASTATIN 20 MG TAB PO SCH (21:00)
[2017-10-21 01:05] VITALS: PULSE 77
[2017-10-21] MEDS: HEPARIN SODIUM - SQ 10,000 UNITS/ML VIAL SQ SCH (02:31)
[2017-10-21 04:06] VITALS: BP 173/80; PULSE 73; RESP 20; TEMP 98.4; O2SAT 100
[2017-10-21 05:25] LABS: BASOPHIL % 0.3 % (0.0-2.0); EOSINOPHIL % 0.5 % (0.0-4.0); HEMATOCRIT 40.9 % (35.0-46.0); HEMOGLOBIN 13.7 GM/DL (11.6-15.3); LYMPH % 37.3 % (9.0-44.0); LYMPHOCYTE # 2.7 TH/MM3 (1.0-4.8); MEAN CELL VOLUME 75.4 FL (80.0-100.0); MEAN CORPUSCULAR HEMOGLOBIN 25.2 PG (27.0-34.0); MEAN CORPUSCULAR HGB CONC 33.4 % (32.0-36.0); MONO % 7.3 % (0.0-8.0); MONOCYTE # 0.5 TH/MM3 (0-0.9); NEUT % 54.6 % (16.0-70.0); PLATELET COUNT 195 TH/MM3 (150-450); RED BLOOD COUNT 5.42 MIL/MM3 (4.00-5.30); RED CELL DISTRIBUTION WIDTH 15.2 % (11.6-17.2); WHITE BLOOD COUNT 7.3 TH/MM3 (4.0-11.0)
[2017-10-21 05:49] LABS: BICARBONATE 27.7 MEQ/L (21.0-32.0); CALCIUM 9.6 MG/DL (8.5-10.1); CREATININE 0.76 MG/DL (0.50-1.00)
[2017-10-21 07:46] VITALS: PULSE 67
[2017-10-21] MEDS: INSULIN ASPART SUPPLEMENTAL SCALE SQ SCH (08:00)
[2017-10-21] MEDS: PANTOPRAZOLE SOD 40 MG DELAYED RELEASE TAB PO SCH (09:04)
[2017-10-21] MEDS: DOCUSATE SODIUM 50 MG/SENNA 8.6 MG TAB PO SCH (09:04)
--- NOTE | 2017-10-21 09:04 | MG ---
cc: Santos Caldera MD EEG#: [id number] Chronic left parietal lobe abnormality. Lipitor, heparin. Some diffuse 7 Hz slowing is noted. Recording overall is synchronous and symmetric. No hemisphere asymmetry is seen. Appears to fall asleep, does not quite reach stage II sleep. Photic stimulation is performed without significant posterior driving. Hyperventilation is performed with good effort, without change in the background. IMPRESSION: Some mild diffuse theta slowing; otherwise an unremarkable recording. No focal abnormality was noted. No seizure activity was seen. Santos Caldera MD DJM/TI , 08:49 AM , 09:03 AM
[2017-10-21] MEDS: CARVEDILOL 12.5 MG TAB PO SCH (09:05)
[2017-10-21] MEDS: LISINOPRIL 5 MG TAB PO SCH (09:05)
[2017-10-21] MEDS: SODIUM CHLORIDE 0.9% FLUSH 10 ML FLUSH IV FLUSH SCH (09:06)
[2017-10-21 09:11] VITALS: BP 166/76; PULSE 67; RESP 20; TEMP 98.1; O2SAT 100
--- NOTE | 2017-10-21 09:29 | HHI.FF ---
Face to Face Verification Diagnosis: (1) Syncope (2) Hypertension (3) Hyperlipidemia (4) DM (diabetes mellitus) (5) GERD (gastroesophageal reflux disease) (6) Dehydration Physical Therapy Order: Evaluate and Treat, Improve ambulation, Strength and gait training Occupational Therapy Order: Evaluate and Treat, Improve ADL, Gross motor coordination Home Health Nursing Order: Medical education Signs/symptoms of disease process Nursing assessment with vital signs Wait Staff Order: To Evaluate: Support services Order: To Provide: Long range planning, Community services I have seen patient Paige Sweet on 10/21/17. My clinical findings support the need for the requested home health care services because: Ltd mobility - disease progression Deconditioned w/ increased weakness Limited ability to care for self High risk of falls I certify that my clinical findings support that this patient is homebound because: Unsteady gait/balance Unsafe to leave home unassisted Unable to use public transportation Izzy Chavira PA-C Oct 21, 2017 09:29
--- NOTE | 2017-10-21 09:29 | HHI.PR ---
Subjective Remarks F/u syncope. Today she is more awake and demanding to go home. Denies any complaints. Improved oral intake. Discussed with nursing Objective Vitals Vital Signs Date Time Temp Pulse Resp B/P (MAP) Pulse Ox O2 Delivery O2 Flow Rate FiO2 10/21/17 09:11 98.1 67 20 166/76 (106) 100 10/21/17 07:46 67 10/21/17 04:06 98.4 73 20 173/80 (111) 100 10/21/17 01:05 77 10/20/17 23:28 99.2 76 16 133/63 (86) 98 10/20/17 20:14 98.4 80 16 159/67 (97) 100 10/20/17 17:05 78 10/20/17 15:21 99.1 72 18 143/70 (94) 98 10/20/17 13:53 63 10/20/17 11:55 97.9 72 12 167/77 (107) 98 161/74 (103) 153/71 (98) 10/20/17 11:30 70 18 132/68 (89) 99 I/O 10/20/17 10/20/17 10/20/17 10/21/17 10/21/17 10/21/17 07:00 15:00 23:00 07:00 15:00 23:00 Intake Total 500 ml 125 ml Output Total 550 ml 400 ml Balance -50 ml -400 ml 125 ml Intake Oral 125 ml IV Total 500 ml Output Urine Total 550 ml 400 ml Result Diagram: 10/21/17 0429 10/21/17 0429 Imaging Last Impressions Head CT 10/20/17 0000 Signed Impressions: Service Date/Time: Friday, October 20, 2017 12:45 - CONCLUSION: 1. Cerebral atrophy with chronic ischemic changes left parietal lobe. 2. No acute intracranial abnormality. Zeferino Webb MD Abdomen/Pelvis CT [id number] Signed Impressions: Service Date/Time: Thursday, October 19, 2017 22:33 - CONCLUSION: 1. Mildly distended urinary bladder. 2. Spinal stenosis at L3-4 and L4-5. 3. Otherwise negative CT abdomen/pelvis without contrast. Rinku Brooks MD Chest X-Ray [id number] Signed Impressions: Service Date/Time: Thursday, October 19, 2017 21:37 - CONCLUSION: The lungs are clear. Rinku Brooks MD Objective Remarks GENERAL: Well-nourished, well-developed thin elderly female patient in [facility]. SKIN: Warm and dry. No rash. CARDIOVASCULAR: Regular rate and rhythm. S1, S2 noted. No murmur appreciated. RESPIRATORY: No accessory muscle use. Clear to auscultation. Breath sounds equal bilaterally. GASTROINTESTINAL: Abdomen soft, non-tender, nondistended. Normoactive bowel sounds x4. MUSCULOSKELETAL: No obvious deformities. Extremities without clubbing, cyanosis , or edema. NEUROLOGICAL: Awake and alert. No obvious cranial nerve deficits. Motor grossly within normal limits. Normal speech. PSYCHIATRIC: Appropriate mood and affect; insight and judgment normal. Procedures none A/P Problem List: (1) Syncope ICD Code: R55 - Syncope and collapse (2) Dehydration ICD Code: E86.0 - Dehydration Assessment and Plan 77-year-old female with history of DM, HTN, HLD, arthritis, glaucoma, L4-5 stenosis, presents with a 2 day history of lightheadedness and episode of syncope. Syncope: suspect secondary to dehydration, patient with recent poor oral intake , nausea, and vomiting. Syncopal workup unremarkable with negative chest x-ray , head CT and EEG. She ruled out for [place]. Negative orthostatics. Recommended home care physical therapy Abdominal Discomfort/Nausea/Vomiting/Poor Appetite: possible gastroenteritis. Abdomen/pelvis CT images reviewed, shows mildly distended urinary bladder; other no acute abdominal abnormalities. This is resolved Hypokalemia: K 3.2. Likely secondary to poor oral intake. Replaced Diabetes Mellitus: Restart metformin and hold glimepiride for now Hypertension: chronic continue patient's carvedilol, amlodipine, and lisinopril DVT Prophylaxis: Heparin sq Discharge Planning Discharge patient to home with PT and visiting nurse Condition on discharge: Improved Regular Diet as tolerated Ad Sharmila activity no driving Rx written: None Follow-up with primary care physician Faustino Nuñez MD Oct 21, 2017 09:29
[2017-10-21] MEDS ORDERED: PANT40TA3 PO (13:20)
[2017-10-21] MEDS ORDERED: POTASSIUM CHLORIDE 20 MEQ CONTROLLED RELEASE TAB PO ONE (14:30)
== END 2017-10-21 14:37 | disposition home or self-care (01) ==
LOC: NEPE 20:25 → NEDA 10-20 01:39 → NEDH 10-20 06:40 → NEPGCP 10-20 12:05
PROVIDERS: ADMIT Internal Medicine; ATTEND Internal Medicine
DX: R55 Syncope and collapse (principal); E86.0 Dehydration; R05 Cough; R07.9 Chest pain, unspecified; G31.9 Degenerative disease of nervous system, unspecified; N32.89 Other specified disorders of bladder; R10.9 Unspecified abdominal pain; R63.0 Anorexia; E87.6 Hypokalemia; K59.09 Other constipation; I10 Essential (primary) hypertension; I42.9 Cardiomyopathy, unspecified; E78.00 Pure hypercholesterolemia, unspecified; E11.9 Type 2 diabetes mellitus without complications; M48.061 Spinal stenosis, lumbar region without neurogenic claudication; H40.9 Unspecified glaucoma; M19.90 Unspecified osteoarthritis, unspecified site; Z79.899 Other long term (current) drug therapy
CPT/HCPCS: 51702; 70450; 71045; 74176; 80048; 80053; 81001; 82550; 82948; 83690; 83735; 83880; 84443; 84484; 85025; 85610; 85730; 87804; 93005; 95819; 96361; 96365; 96372; 96375; 97162; 97167; 99285; G0378; G8987; G8988; J1644; J2405; J3480; J7040

== ENCOUNTER 2018-01-21 11:26 | Emergency (ER) | payer OTHER ==
[~2018-01-21] VITALS: Ht 167.6 cm; Wt 52.0 kg
[~2018-01-21 11:26] MED LIST changes: +AMLO10TA2 PO; -AMLO5TAB2 PO; +LISI-519 PO; +MECL-62 PO; +MELO7.5T27 PO; +MONT10TA4 PO
[2018-01-21 11:36] VITALS: BP 121/90; PULSE 73; RESP 18; TEMP 99; O2SAT 98
--- NOTE | 2018-01-21 11:59 | PD ---
HPI Chief Complaint: Seizure Time Seen by Provider: 11:46 Travel History International Travel<30 days: No Contact w/Intl Traveler<30days: No Traveled to known affect area: No History of Present Illness HPI 77-year-old female history of CAD, remote CVA, hypertension, arthritis, diabetes , presents emergency department for evaluation of what she thinks may have been a seizure. Patient states she got up from her chair and was walking across the living room. She states that that time the room began to spin. She had to help herself down into the ground where she waited until the spinning subsided. She was able to get herself back up and continue on with her time, however she had this pressure in the posterior left side of her head so she contacted her family member to bring her to the emergency department. Patient reports no associated focal deficits or weakness. She denies any nausea, vomiting. She has had no shortness of breath or chest pain. She denies any other symptoms at this time. Patient states that this happened at least 5 years over the last year. Her primary care provider is aware and she has been worked up for it. She tells me they are uncertain why it keeps happening. PFSH Past Medical History Hx Anticoagulant Therapy: No Arthritis: Yes Autoimmune Disease: No Blood Disorders: No Heart Rhythm Problems: No Cancer: No Cardiac Catheterization: No Cardiomyopathy: Yes Cardiovascular Problems: Yes High Cholesterol: Yes Chemotherapy: No Chest Pain: Yes Congestive Heart Failure: No Cerebrovascular Accident: Yes Diabetes: Yes Patient Takes Glucophage: Yes Diminished Hearing: No Endocrine: Yes Gastrointestinal Disorders: Yes (GERD) Glaucoma: Yes Genitourinary: No Heparin Induced Thrombocytopen: No Hypertension: Yes Immune Disorder: No Musculoskeletal: No Neurologic: No Psychiatric: No Reproductive: No Respiratory: No Thyroid Disease: No ?: Not Menopausal: Yes Ovarian Cysts: Yes Past Surgical History Abdominal Surgery: No Appendectomy: Yes Cardiac Surgery: No Coronary Artery Bypass Graft: No Ear Surgery: No Endocrine Surgery: No Eye Surgery: No Genitourinary Surgery: No Gynecologic Surgery: Yes Hysterectomy: Yes Oral Surgery: No Pacemaker: No Thoracic Surgery: No Other Surgery: Yes (HYSTERECTOMY, BACK X 2) Family History Family Myocardial Infarction: Yes Social History Alcohol Use: No Tobacco Use: No Substance Use: No Allergies-Medications (Allergen,Severity, Reaction): Coded Allergies: niacin (Unverified Allergy, Intermediate, rash, 6/8/18) acetaminophen (Unverified Allergy, Unknown, rash, 01/21/18) atorvastatin (Unverified Allergy, Unknown, MUSCLE SPASMS, 01/21/18) betamethasone (Unverified Allergy, Unknown, MUSCLE SPASMS, 01/21/18) carisoprodol (Unverified Allergy, Unknown, rash, 01/21/18) iodine (Unverified Allergy, Unknown, HIVES, 01/21/18) lovastatin (Unverified Allergy, Unknown, rash, 01/21/18) potassium iodide (Unverified Allergy, Unknown, HIVES, 01/21/18) povidone-iodine (Unverified Allergy, Unknown, HIVES, 01/21/18) sodium iodide (Unverified Allergy, Unknown, HIVES, 01/21/18) sodium iodide (Unverified Allergy, Unknown, HIVES, 01/21/18) hydrocodone (Unverified Adverse Reaction, Severe, BEHAVIORAL PSYCH, 01/21/18 ) gabapentin (Unverified Adverse Reaction, Unknown, DIZZINESS, 01/21/18) nabumetone (Unverified Adverse Reaction, Unknown, PSYCH BEHAVIORAL, 01/21/18 ) Uncoded Allergies: STATINS (Allergy, Mild, 08/10/06) NIASPAN (Adverse Reaction, Intermediate, 11/28/09) Reported Meds & Prescriptions Reported Meds & Active Scripts Active Pantoprazole (Pantoprazole Sodium) 40 Mg Tab 40 Mg PO DAILY Reported Lisinopril 5 Mg Tab 5 Mg PO DAILY Amlodipine (Amlodipine Besylate) 10 Mg Tab 10 Mg PO DAILY Meclizine (Meclizine HCl) 25 Mg Tab 25 Mg PO TID PRN Meloxicam 7.5 Mg Tab 7.5 Mg PO DAILY Montelukast (Montelukast Sodium) 10 Mg Tab 10 Mg PO HS Atorvastatin (Atorvastatin Calcium) 20 Mg Tab 20 Mg PO HS Metformin (Metformin HCl) 500 Mg Tab 500 Mg PO DAILY With a meal Carvedilol 12.5 Mg Tab 12.5 Mg PO BID Review of Systems Except as stated in HPI: all other systems reviewed are Neg Physical Exam Narrative GENERAL: Well-nourished female patient, ambulatory with a non-ataxic gait, with cane assistance, in no acute distress SKIN: Focused skin assessment warm/dry. HEAD: Atraumatic. Normocephalic. EYES: Pupils equal and round. Equal reactive. No scleral icterus. No injection or drainage. ENT: No nasal bleeding or discharge. Mucous membranes pink and moist. NECK: Trachea midline. No JVD. Patient has a soft collar in place, however cervical spine is without tenderness. Patient has full range of motion of the cervical spine. CARDIOVASCULAR: Regular rate and rhythm. 2/6 systolic murmur murmur appreciated. RESPIRATORY: No accessory muscle use. Clear to auscultation. Breath sounds equal bilaterally. GASTROINTESTINAL: Abdomen soft, non-tender, nondistended. Hepatic and splenic margins not palpable. MUSCULOSKELETAL: No obvious deformities. No clubbing. No cyanosis. No edema. 5+ strength equal bilateral extremities. Sensation intact distal extremities. NEUROLOGICAL: Awake and alert. No obvious cranial nerve deficits. Motor grossly within normal limits. Normal speech. PSYCHIATRIC: Appropriate mood and affect; insight and judgment normal. Data Data Last Documented VS Vital Signs Date Time Temp Pulse Resp B/P (MAP) Pulse Ox O2 Delivery O2 Flow Rate FiO2 01/21/18 17:14 71 14 122/57 (78) 98 21 01/21/18 12:26 Room Air 01/21/18 11:36 99.0 Orders Orders Electrocardiogram (01/21/18 11:55) Basic Metabolic Panel (Bmp) (01/21/18 11:55) Complete Blood Count With Diff (01/21/18 11:55) Magnesium (Mg) (01/21/18 11:55) Ckmb (Isoenzyme) Profile (01/21/18 11:55) Troponin I (01/21/18 11:55) Act Partial Throm Time (Ptt) (01/21/18 11:55) Prothrombin Time / Inr (Pt) (01/21/18 11:55) Urinalysis - C+S If Indicated (01/21/18 11:55) Chest, Single Ap (01/21/18 11:55) Ct Brain W/O Iv Contrast(Rout) (01/21/18 11:55) Ecg Monitoring (01/21/18 11:55) Iv Access Insert/Monitor (01/21/18 11:55) Oximetry (01/21/18 11:55) Sodium Chloride 0.9% Flush (Ns Flush) (01/21/18 12:00) Sodium Chlorid 0.9% 500 Ml Inj (Ns 500 M (01/21/18 12:00) Ketorolac Inj (Toradol Inj) (01/21/18 12:00) Orthostatic Vital Signs (01/21/18 13:19) Cath For Specimen (01/21/18 14:51) Urine Culture (01/21/18 15:00) Ed Discharge Order (01/21/18 16:45) Labs Laboratory Tests Test 01/21/18 12:00 01/21/18 15:00 White Blood Count 7.1 TH/MM3 Red Blood Count 4.76 MIL/MM3 Hemoglobin 11.7 GM/DL Hematocrit 36.0 % Mean Corpuscular Volume 75.6 FL Mean Corpuscular Hemoglobin 24.6 PG Mean Corpuscular Hemoglobin Concent 32.6 % Red Cell Distribution Width 14.6 % Platelet Count 191 TH/MM3 Mean Platelet Volume 8.8 FL Neutrophils (%) (Auto) 57.4 % Lymphocytes (%) (Auto) 31.5 % Monocytes (%) (Auto) 9.0 % Eosinophils (%) (Auto) 1.4 % Basophils (%) (Auto) 0.7 % Neutrophils # (Auto) 4.1 TH/MM3 Lymphocytes # (Auto) 2.2 TH/MM3 Monocytes # (Auto) 0.6 TH/MM3 Eosinophils # (Auto) 0.1 TH/MM3 Basophils # (Auto) 0.1 TH/MM3 CBC Comment DIFF FINAL Differential Comment Prothrombin Time 11.4 SEC Prothromb Time International Ratio 1.1 RATIO Activated Partial Thromboplast Time 24.1 SEC Blood Urea Nitrogen 26 MG/DL Creatinine 0.80 MG/DL Random Glucose 152 MG/DL Calcium Level 9.2 MG/DL Magnesium Level 2.0 MG/DL Sodium Level 141 MEQ/L Potassium Level 4.2 MEQ/L Chloride Level 107 MEQ/L Carbon Dioxide Level 24.3 MEQ/L Anion Gap 10 MEQ/L Estimat Glomerular Filtration Rate 84 ML/MIN Total Creatine Kinase 76 U/L Troponin I LESS THAN 0.02 NG/ML Urine Color LIGHT-YELLOW Urine Turbidity CLEAR Urine pH 6.0 Urine Specific [place] 1.006 Urine Protein NEG mg/dL Urine Glucose (UA) NEG mg/dL Urine Ketones NEG mg/dL Urine Occult Blood NEG Urine Nitrite NEG Urine Bilirubin NEG Urine Urobilinogen LESS THAN 2.0 MG/DL Urine Leukocyte Esterase MOD Urine WBC 10 /hpf Urine Squamous Epithelial Cells 6 /hpf Microscopic Urinalysis Comment CULTURE INDICATED MDM Medical Decision Making Medical Screen Exam Complete: Yes Emergency Medical Condition: Yes Medical Record Reviewed: Yes Differential Diagnosis Vertigo versus orthostatic hypotension versus electrolyte abnormality versus intracranial etiology Narrative Course 77-year-old female presents emergency department for evaluation. Patient appears without distress. Her neuro exam is nonfocal. Her only complaint at this time is a left posterior head pressure. Laboratory Tests Test 01/21/18 12:00 01/21/18 15:00 White Blood Count 7.1 TH/MM3 Red Blood Count 4.76 MIL/MM3 Hemoglobin 11.7 GM/DL Hematocrit 36.0 % Mean Corpuscular Volume 75.6 FL Mean Corpuscular Hemoglobin 24.6 PG Mean Corpuscular Hemoglobin Concent 32.6 % Red Cell Distribution Width 14.6 % Platelet Count 191 TH/MM3 Mean Platelet Volume 8.8 FL Neutrophils (%) (Auto) 57.4 % Lymphocytes (%) (Auto) 31.5 % Monocytes (%) (Auto) 9.0 % Eosinophils (%) (Auto) 1.4 % Basophils (%) (Auto) 0.7 % Neutrophils # (Auto) 4.1 TH/MM3 Lymphocytes # (Auto) 2.2 TH/MM3 Monocytes # (Auto) 0.6 TH/MM3 Eosinophils # (Auto) 0.1 TH/MM3 Basophils # (Auto) 0.1 TH/MM3 CBC Comment DIFF FINAL Differential Comment Prothrombin Time 11.4 SEC Prothromb Time International Ratio 1.1 RATIO Activated Partial Thromboplast Time 24.1 SEC Blood Urea Nitrogen 26 MG/DL Creatinine 0.80 MG/DL Random Glucose 152 MG/DL Calcium Level 9.2 MG/DL Magnesium Level 2.0 MG/DL Sodium Level 141 MEQ/L Potassium Level 4.2 MEQ/L Chloride Level 107 MEQ/L Carbon Dioxide Level 24.3 MEQ/L Anion Gap 10 MEQ/L Estimat Glomerular Filtration Rate 84 ML/MIN Total Creatine Kinase 76 U/L Troponin I LESS THAN 0.02 NG/ML Urine Color LIGHT-YELLOW Urine Turbidity CLEAR Urine pH 6.0 Urine Specific [place] 1.006 Urine Protein NEG mg/dL Urine Glucose (UA) NEG mg/dL Urine Ketones NEG mg/dL Urine Occult Blood NEG Urine Nitrite NEG Urine Bilirubin NEG Urine Urobilinogen LESS THAN 2.0 MG/DL Urine Leukocyte Esterase MOD Urine WBC 10 /hpf Urine Squamous Epithelial Cells 6 /hpf Microscopic Urinalysis Comment CULTURE INDICATED Last Impressions Head CT 01/21/18 1155 Signed Impressions: CONCLUSION: 1. No acute abnormality seen. 2. Atrophy. The ventricles are dilated out of proportion to the sulcal widenin g which can suggest normal pressure hydrocephalus in the correct clinical situa tion. Chest X-Ray 01/21/18 1155 Signed Impressions: CONCLUSION: No acute cardiopulmonary process. I discussed the findings with my attending physician. He has also assessed the patient and reviewed the findings. Patient states she feels much better and would like to be discharged home. I have explained to her that her urine will be sent for culture and if it does grow anything, we will be calling her to start on antibiotics. I have encouraged her to follow-up with her primary care provider. She agrees to return immediately with acute worsening of symptoms. Diagnosis Primary Impression: Postural dizziness Additional Impression: Pressure in head Referrals: Neurologist Primary Care Physician Patient Instructions: Dizziness (ED), General Instructions Additional Instructions: Maintain adequate oral hydration Follow-up with a primary care provider Seek neurology evaluation if symptoms persist Return immediately with acute worsening symptoms Med/Other Pt SpecificInfo: No Change to Meds Disposition: 01 DISCHARGE HOME Condition: Stable SandraEmber DAVIS Jan 21, 2018 11:59
[2018-01-21] MEDS ORDERED: KETOROLAC TROMETHAMINE 30 MG/ML (IVP) VIAL IV PUSH ONE (12:00)
[2018-01-21] MEDS ORDERED: SODIUM CHLORID 0.9% 500 ML INJ 500 ML IV ONE (12:00)
[2018-01-21] MEDS ORDERED: SODIUM CHLORIDE 0.9% FLUSH 10 ML FLUSH IVF PRN (12:00)
--- NOTE | 2018-01-21 12:17 | RADRPT ---
EXAM DATE: 01/21/2018 12:15 PM EDT AGE/SEX: 77 years / Female INDICATIONS: Palpitations, seizure this morning, short of breath CLINICAL DATA: This is the patient's initial encounter. Patient reports that signs and symptoms have been present for 1 day and indicates a pain score of 0/10. MEDICAL/SURGICAL HISTORY: Hypertension. Diabetes mellitus type II. seizure None. COMPARISON: No prior exams available for comparison. FINDINGS: A single AP view of the chest demonstrates the lungs to be symmetrically aerated without evidence of mass, infiltrate or effusion. The cardiomediastinal contours are unremarkable. Osseous structures a re intact. CONCLUSION: No acute cardiopulmonary process. Electronically signed by: Klever Parker MD 01/21/2018 12:16 PM EDT
[2018-01-21 12:19] LABS: AUTOMATED NEUTROPHIL # 4.1 TH/MM3 (1.8-7.7); BASOPHIL # 0.1 TH/MM3 (0-0.2); BASOPHIL % 0.7 % (0.0-2.0); EOSINOPHIL # 0.1 TH/MM3 (0-0.4); EOSINOPHIL % 1.4 % (0.0-4.0); HEMOGLOBIN 11.7 GM/DL (11.6-15.3); LYMPH % 31.5 % (9.0-44.0); LYMPHOCYTE # 2.2 TH/MM3 (1.0-4.8); MEAN CELL VOLUME 75.6 FL (80.0-100.0); MEAN CORPUSCULAR HEMOGLOBIN 24.6 PG (27.0-34.0); MEAN CORPUSCULAR HGB CONC 32.6 % (32.0-36.0); MEAN PLATELET VOLUME 8.8 FL (7.0-11.0); MONOCYTE # 0.6 TH/MM3 (0-0.9); NEUT % 57.4 % (16.0-70.0); PLATELET COUNT 191 TH/MM3 (150-450); RED BLOOD COUNT 4.76 MIL/MM3 (4.00-5.30); RED CELL DISTRIBUTION WIDTH 14.6 % (11.6-17.2); WHITE BLOOD COUNT 7.1 TH/MM3 (4.0-11.0)
[2018-01-21 12:26] VITALS: BP 125/59; PULSE 63; RESP 16; O2SAT 98
[2018-01-21 12:31] LABS: INTERNATIONAL NORMALIZED RATIO 1.1 RATIO; PROTHROMBIN TIME - PATIENT 11.4 SEC (9.8-11.6)
[2018-01-21 12:49] LABS: BICARBONATE 24.3 MEQ/L (21.0-32.0); BLOOD UREA NITROGEN 26 MG/DL (7-18); CALCIUM 9.2 MG/DL (8.5-10.1); CHLORIDE 107 MEQ/L (98-107); GLOMERULAR FILTRATION RATE 84 ML/MIN (>89); GLUCOSE,RANDOM 152 MG/DL (74-106); SODIUM (NA) 141 MEQ/L (136-145)
[2018-01-21 13:38] LABS: TROPONIN I LESS THAN 0.02 NG/ML (0.02-0.05)
[2018-01-21 14:02] VITALS: BP_SYST 113; BP_SYST 124; BP_SYST 128; BP_DIAS 57; BP_DIAS 58; BP_DIAS 61; RESP 14; RESP 15; RESP 19
[2018-01-21 14:13] VITALS: RESP 16
--- NOTE | 2018-01-21 14:39 | RADRPT ---
EXAM DATE: 01/21/2018 12:53 PM EDT AGE/SEX: 77 years / Female INDICATIONS: Seizure with dizziness. CLINICAL DATA: This is the patient's initial encounter. Patient reports that signs and symptoms have been present for 1 day and indicates a pain score of 0/10. MEDICAL/SURGICAL HISTORY: Cardiovascular disease. Cerebrovascular disease. Hypertension. diabeti c Hysterectomy. RADIATION DOSE: 36.13 CTDI (mGy) [place] [facility] [place]. . TECHNIQUE: CT of the head without contrast. Using automated exposure control and adjustment of the mA and/or kV according to patient size, radiation dose was kept as low as reasonably achievable to ob tain optimal diagnostic quality images. FINDINGS: Cerebrum: The ventricles and cortical sulci are widened. The ventricles appear dilated out of porti on to the sulcal widening. No evidence of midline shift, mass lesion, hemorrhage or acute infarction. No extraaxial fluid collections are seen. Posterior Fossa: The cerebellum and brainstem are intact. The 4th ventricle is midline. The cerebe llopontine angle is unremarkable. Extracranial: The visualized portion of the orbits is intact. Skull: The calvaria is intact. No evidence of skull fracture. CONCLUSION: 1. No acute abnormality seen. 2. Atrophy. The ventricles are dilated out of proportion to the sulcal widening which can suggest no rmal pressure hydrocephalus in the correct clinical situation. Electronically signed by: Klever Parker MD 01/21/2018 12:55 PM EDT
[2018-01-21 15:52] LABS: BILIRUBIN, URINE NEG (NEG); BLOOD, URINE NEG (NEG); GLUCOSE,URINE NEG (NEG); KETONE, URINE NEG (NEG); NITRITE,URINE NEG (NEG); SQUAMOUS EPITHELIAL CELL URINE 6 /hpf (0-5); URINE COLOR LIGHT-YELLOW (YELLW/STRAW); URINE LEUKOCYTE ESTERASE MOD (NEG)
[2018-01-21 17:14] VITALS: BP 122/57
--- NOTE | 2018-01-22 15:24 | EKG ---
Date Performed: 01/21/2018 Time Performed: 11:02:28 PTAGE: 77 years EKG: Sinus rhythm NORMAL ECG PREVIOUS TRACING : 10/19/2017 22.17 Since the previous tracing, no significant change noted DOCTOR: Shayne Yeh Interpretating Date/Time 01/22/2018 15:22:31
== END 2018-01-21 18:24 | disposition home or self-care (01) ==
LOC: NEPE 11:26
DX: R42 Dizziness and giddiness (principal); E11.9 Type 2 diabetes mellitus without complications; E78.00 Pure hypercholesterolemia, unspecified; I10 Essential (primary) hypertension; K21.9 Gastro-esophageal reflux disease without esophagitis; I25.10 Atherosclerotic heart disease of native coronary artery without angina pectoris; Z79.84 Long term (current) use of oral hypoglycemic drugs
CPT/HCPCS: 70450; 71045; 80048; 81001; 82550; 83735; 84484; 85025; 85610; 85730; 87086; 93005; 96361; 96374; 99285; J1885; J7040